=== PATIENT | male | born 1950 | race Caucasian/White ===

== ENCOUNTER 2018-03-02 14:40 | Emergency (ER) | payer MEDICARE ==
[2018-03-02 14:54] VITALS: TEMP 98.6
[2018-03-02] MEDS ORDERED: SODIUM CHLORIDE 0.9% 1,000 ML IV STA (15:17)
--- NOTE | 2018-03-02 15:20 | ED ---
Dizziness HPI - General Chief Complaint: Dizziness Stated Complaint: Hematuria Time Seen by Provider: 03/02/18 15:02 Source: patient, RN notes reviewed, old records reviewed Mode of arrival: ambulatory Limitations: no limitations - History of Present Illness Initial Comments: This patient's a 67-year-old male with chief complaint of dizziness, and hematuria for the past week. Patient reports that approximately one week ago he had a right ureteral stent placed by Dr. Vernon in [facility]. Patient has had persistent hematuria since that time. He they report that he has diminished up in the past few days. Patient reports that he has no significant back or abdominal pain. He was also concerned due to increased belching. He was started on omeprazole daily for the increased belching by his primary care physician. Patient states that he had an episode near syncope yesterday. He denies any headache, chest pain or shortness of breath. He reports that he's had no bloody stools. - Related Data Home Medications Medication Instructions Recorded Confirmed Aspirin EC [Ecotrin Low Dose] 81 mg PO HS 03/02/18 03/02/18 Losartan Potassium [Cozaar] 100 mg PO HS 03/02/18 03/02/18 Meloxicam 15 mg PO HS 03/02/18 03/02/18 Omeprazole 40 mg PO BID 03/02/18 03/02/18 Tamsulosin [Flomax] 0.4 mg PO HS 03/02/18 03/02/18 amLODIPine [Norvasc] 5 mg PO HS 03/02/18 03/02/18 Previous Rx's Medication Instructions Recorded Meclizine [Antivert] 12.5 mg PO Q6H #12 tablet 03/02/18 Allergies Allergy/AdvReac Type Severity Reaction Status Date / Time No Known Allergies Allergy Verified 03/02/18 15:24 Review of Systems ROS Statement: Those systems with pertinent positive or pertinent negative responses have been documented in the HPI. ROS Other: All systems not noted in ROS Statement are negative. Past Medical History Past Medical History: GERD/Reflux, Hypertension Additional Past Medical History / Comment(s): kidney stones History of Any Multi-Drug Resistant Organisms: None Reported Past Surgical History: Orthopedic Surgery, Tonsillectomy Additional Past Surgical History / Comment(s): kidney stent, kidney stone removal, rt hip replac Past Psychological History: No Psychological Hx Reported Smoking Status: Never smoker Past Alcohol Use History: Occasional Past Drug Use History: None Reported General Exam - General Exam Comments Initial Comments: This is a well-appearing alert and oriented 67-year-old male. No significant distress. Limitations: no limitations General appearance: alert, in no apparent distress Head exam: Present: atraumatic, normocephalic, normal inspection Eye exam: Present: normal appearance, PERRL, EOMI. Absent: scleral icterus, conjunctival injection, periorbital swelling ENT exam: Present: normal exam, mucous membranes moist Neck exam: Present: normal inspection. Absent: tenderness, meningismus, lymphadenopathy Respiratory exam: Present: normal lung sounds bilaterally. Absent: respiratory distress, wheezes, rales, rhonchi, stridor Cardiovascular Exam: Present: regular rate, normal rhythm, normal heart sounds. Absent: systolic murmur, diastolic murmur, rubs, gallop, clicks GI/Abdominal exam: Present: soft, tenderness (Minimal right CVA tenderness.), normal bowel sounds. Absent: distended, guarding, rebound, rigid Extremities exam: Present: normal inspection, full ROM, normal capillary refill. Absent: tenderness, pedal edema, joint swelling, calf tenderness Back exam: Present: normal inspection Neurological exam: Present: alert Course Vital Signs 03/02/18 03/02/18 03/02/18 14:50 15:54 17:00 Temperature 98.6 F Pulse Rate 95 85 77 Respiratory 18 20 18 Rate Blood Pressure 115/70 128/83 117/70 O2 Sat by Pulse 98 97 98 Oximetry 03/02/18 18:05 Temperature 98.6 F Pulse Rate 73 Respiratory 18 Rate Blood Pressure 128/65 O2 Sat by Pulse 98 Oximetry Medical Decision Making - Medical Decision Making This patient's a 67-year-old male with chief complaint of dizziness, and hematuria for the past week. Patient reports that approximately one week ago he had a right ureteral stent placed by Dr. Vernon in [facility].Patient given IV fluids, labs obtained. UA shows hematuria, as to be expected after ureteral stent plaement. Culture obtained. He recently completed his antibiotics post procedure. PAtient EKG was normal, Normal CXR. No neurological deficits. PAtietn reports he felt well after fluids. His main concern is loss of blood through his urine. HGB is table, Kidney function is preserved, as well as normal WBC. Patient informed of all results. At this time discussed close follow up with PCP, and will DC with meclizine. Discussed return parameters. - Lab Data Result diagrams: 03/02/18 16:00 03/02/18 16:00 Lab Results 03/02/18 03/02/18 03/02/18 Range/Units 16:00 16:00 16:00 WBC 6.8 (3.8-10.6) k/uL RBC 5.44 (4.30-5.90) m/uL Hgb 16.1 (13.0-17.5) gm/dL Hct 46.6 (39.0-53.0) % MCV 85.6 (80.0-100.0) fL MCH 29.6 (25.0-35.0) pg MCHC 34.5 (31.0-37.0) g/dL RDW 12.8 (11.5-15.5) % Plt Count 129 L (150-450) k/uL Neutrophils % 71 % Lymphocytes % 18 % Monocytes % 8 % Eosinophils % 1 % Basophils % 0 % Neutrophils # 4.8 (1.3-7.7) k/uL Lymphocytes # 1.2 (1.0-4.8) k/uL Monocytes # 0.5 (0-1.0) k/uL Eosinophils # 0.1 (0-0.7) k/uL Basophils # 0.0 (0-0.2) k/uL PT 10.6 (9.0-12.0) sec INR 1.1 (<1.2) Sodium 140 (137-145) mmol/L Potassium 4.0 (3.5-5.1) mmol/L Chloride 106 (98-107) mmol/L Carbon Dioxide 25 (22-30) mmol/L Anion Gap 9 mmol/L BUN 17 (9-20) mg/dL Creatinine 0.89 (0.66-1.25) mg/dL Est GFR (CKD-EPI)AfAm >90 (>60 ml/min/1.73 sqM) Est GFR (CKD-EPI)NonAf 89 (>60 ml/min/1.73 sqM) Glucose 94 (74-99) mg/dL Calcium 9.4 (8.4-10.2) mg/dL Total Bilirubin 0.9 (0.2-1.3) mg/dL AST 21 (17-59) U/L ALT 34 (21-72) U/L Alkaline Phosphatase 65 (38-126) U/L Troponin I (0.000-0.034) ng/mL Total Protein 6.5 (6.3-8.2) g/dL Albumin 4.3 (3.5-5.0) g/dL Urine Color Urine Appearance (Clear) Urine pH (5.0-8.0) Ur Specific Bryan (1.001-1.035) Urine Protein (Negative) Urine Glucose (UA) (Negative) Urine Ketones (Negative) Urine Blood (Negative) Urine Nitrite (Negative) Urine Bilirubin (Negative) Urine Urobilinogen (<2.0) mg/dL Ur Leukocyte Esterase (Negative) Urine RBC (0-5) /hpf Urine WBC (0-5) /hpf Urine Bacteria (None) /hpf Hyaline Casts (0-2) /lpf Urine Mucus (None) /hpf 03/02/18 03/02/18 Range/Units 16:00 16:55 WBC (3.8-10.6) k/uL RBC (4.30-5.90) m/uL Hgb (13.0-17.5) gm/dL Hct (39.0-53.0) % MCV (80.0-100.0) fL MCH (25.0-35.0) pg MCHC (31.0-37.0) g/dL RDW (11.5-15.5) % Plt Count (150-450) k/uL Neutrophils % % Lymphocytes % % Monocytes % % Eosinophils % % Basophils % % Neutrophils # (1.3-7.7) k/uL Lymphocytes # (1.0-4.8) k/uL Monocytes # (0-1.0) k/uL Eosinophils # (0-0.7) k/uL Basophils # (0-0.2) k/uL PT (9.0-12.0) sec INR (<1.2) Sodium (137-145) mmol/L Potassium (3.5-5.1) mmol/L Chloride (98-107) mmol/L Carbon Dioxide (22-30) mmol/L Anion Gap mmol/L BUN (9-20) mg/dL Creatinine (0.66-1.25) mg/dL Est GFR (CKD-EPI)AfAm (>60 ml/min/1.73 sqM) Est GFR (CKD-EPI)NonAf (>60 ml/min/1.73 sqM) Glucose (74-99) mg/dL Calcium (8.4-10.2) mg/dL Total Bilirubin (0.2-1.3) mg/dL AST (17-59) U/L ALT (21-72) U/L Alkaline Phosphatase (38-126) U/L Troponin I <0.012 (0.000-0.034) ng/mL Total Protein (6.3-8.2) g/dL Albumin (3.5-5.0) g/dL Urine Color Yellow Urine Appearance Clear (Clear) Urine pH 6.0 (5.0-8.0) Ur Specific Bryan 1.012 (1.001-1.035) Urine Protein 1+ H (Negative) Urine Glucose (UA) Negative (Negative) Urine Ketones 1+ H (Negative) Urine Blood Large H (Negative) Urine Nitrite Negative (Negative) Urine Bilirubin Negative (Negative) Urine Urobilinogen <2.0 (<2.0) mg/dL Ur Leukocyte Esterase Moderate H (Negative) Urine RBC >182 H (0-5) /hpf Urine WBC 16 H (0-5) /hpf Urine Bacteria Rare H (None) /hpf Hyaline Casts 2 (0-2) /lpf Urine Mucus Occasional H (None) /hpf 03/02/18 16:04 EKG performed at 1548 shows normal sinus rhythm left axis deviation. Pulmonary disease pattern. Abnormal EKG noted. Ventricular rate 94 bpm. Was 168 ms. QRS ration 82. QT QTc is 372/465 ms. - Radiology Data Radiology results: report reviewed Nonacute abdomen noted. Chest x-rays negative for any acute cardiac coronary disease. Disposition Clinical Impression: Dizziness, Hematuria Disposition: HOME SELF-CARE Condition: Good Instructions: Dizziness (ED) Additional Instructions: Patient has a follow-up within the next 1-2 days with primary care physician. Continue to keep your appointment with urology. Return to the emergency department if any alarming signs or symptoms occur. Prescriptions: Meclizine [Antivert] 12.5 mg PO Q6H #12 tablet Is patient prescribed a controlled substance at d/c from ED?: No Referrals: Doreen Quevedo DO [Primary Care Provider] - 1-2 days Time of Disposition: 17:50
[2018-03-02] MEDS ORDERED: SODIUM CHLORIDE 0.9% 1,000 ML IV SCH (15:30)
[2018-03-02 16:16] LABS: INR 1.1 (<1.2); Prothrombin Time 10.6 sec (9.0-12.0)
[2018-03-02 16:19] LABS: ALT 34 U/L (21-72); AST 21 U/L (17-59); Albumin 4.3 g/dL (3.5-5.0); Alkaline Phosphatase 65 U/L (38-126); Anion Gap 9 mmol/L; Blood Urea Nitrogen 17 mg/dL (9-20); Calcium 9.4 mg/dL (8.4-10.2); Carbon Dioxide 25 mmol/L (22-30); Chloride 106 mmol/L (98-107); Glucose 94 mg/dL (74-99); Sodium 140 mmol/L (137-145); Total Bilirubin 0.9 mg/dL (0.2-1.3); Total Protein 6.5 g/dL (6.3-8.2)
[2018-03-02 16:26] LABS: Basophils % (A) 0 %; Eosinophils # (A) 0.1 k/uL (0-0.7); Eosinophils % (A) 1 %; HCT 46.6 % (39.0-53.0); HGB 16.1 gm/dL (13.0-17.5); Lymphocytes # (A) 1.2 k/uL (1.0-4.8); Lymphocytes % (A) 18 %; MCH 29.6 pg (25.0-35.0); MCHC 34.5 g/dL (31.0-37.0); MCV 85.6 fL (80.0-100.0); Mean Platelet Volume 7.4; Monocytes # (A) 0.5 k/uL (0-1.0); Monocytes % (A) 8 %; Neutrophils # (A) 4.8 k/uL (1.3-7.7); Neutrophils % (A) 71 %; Platelet Count 129 k/uL (150-450); RBC 5.44 m/uL (4.30-5.90); RDW 12.8 % (11.5-15.5); WBC 6.8 k/uL (3.8-10.6)
--- NOTE | 2018-03-02 16:43 | XR ---
EXAMINATION TYPE: XR chest 2V DATE OF EXAM: 03/02/2018 COMPARISON: NONE HISTORY: Dizziness TECHNIQUE: Frontal and lateral views of the chest are obtained. FINDINGS: Heart and mediastinum are normal. Lungs are clear. Diaphragm is normal. There are chest le ads. Bony thorax is intact. IMPRESSION: No active cardiopulmonary disease.
--- NOTE | 2018-03-02 16:45 | XR ---
EXAMINATION TYPE: XR KUB DATE OF EXAM: 03/02/2018 COMPARISON: NONE HISTORY: Abdominal pain TECHNIQUE: 2 views FINDINGS: 2 upright views show no sign of intestinal obstruction or pneumoperitoneum. Fecal pattern i s normal. There is right hip prosthesis. Lung bases are clear. There are no pathologic calcifications over the kidneys. There is left-sided double-J ureteral stent. IMPRESSION: Nonacute abdomen.
[2018-03-02 17:11] LABS: Appearance,Urine Clear (Clear); Bacteria,Urine Rare /hpf; Bilirubin,Urine Negative (Negative); Blood,Urine Large (Negative); Color,Urine Yellow; Glucose,Urine (UA) Negative (Negative); Hyaline Casts,Urine 2 /lpf (0-2); Ketones,Urine 1+ (Negative); Leukocyte Esterase,Urine Moderate (Negative); Mucus,Urine Occasional /hpf; Nitrite,Urine Negative (Negative); Protein,Urine 1+ (Negative); RBC,Urine >182 /hpf (0-5); Specific Gravity,Urine 1.012 (1.001-1.035); Urobilinogen,Urine <2.0 mg/dL (<2.0); WBC,Urine 16 /hpf (0-5)
[2018-03-02 17:28] VITALS: RESP 18
[2018-03-02 18:06] VITALS: BP 128/65; PULSE 73
== END 2018-03-02 18:06 | disposition home or self-care (01) ==
LOC: EC 14:40
DX: R42 Dizziness and giddiness (principal); R31.9 Hematuria, unspecified; I10 Essential (primary) hypertension; K21.9 Gastro-esophageal reflux disease without esophagitis; Z96.0 Presence of urogenital implants; Z87.442 Personal history of urinary calculi; Z79.1 Long term (current) use of non-steroidal anti-inflammatories (NSAID); Z79.82 Long term (current) use of aspirin; Z79.899 Other long term (current) drug therapy
CPT/HCPCS: 36415; 71046; 74018; 80053; 81001; 84484; 85025; 85610; 87077; 87086; 87186; 93005; 96360; 96361; 99284

== ENCOUNTER 2021-01-03 16:22 | Observation (INO) | payer MEDICARE ==
--- NOTE | 2021-01-03 16:34 | ED ---
Chest Pain HPI - General Chief Complaint: Chest Pain Stated Complaint: chest pain Time Seen by Provider: 01/03/21 16:33 Source: patient Mode of arrival: wheelchair Limitations: no limitations - History of Present Illness Initial Comments: Lee is a 70-year-old man who presents the ER today for evaluation of chest pain. Patient reports he's been having intermittent chest pain for the past week, he thought it was related to his acid reflux he's been taking extra [id number] medications including Tums and Maalox with no improvement. Patient reports that today he got the chest pain while gardening, he states that he was able to do only of very little bit of work before becoming very short of breath and having chest pain. His noted that he looked diaphoretic and uncomfortable. They decided that time that he should rest. Despite resting and persistent pain he decided to come to the ER for evaluation. Patient has no significant cardiac history does not follow with cardiology. - Related Data Home Medications Medication Instructions Recorded Confirmed Aspirin EC [Ecotrin Low Dose] 81 mg PO HS 03/02/18 03/02/18 Losartan Potassium [Cozaar] 100 mg PO HS 03/02/18 03/02/18 Meloxicam 15 mg PO HS 03/02/18 03/02/18 Omeprazole 40 mg PO BID 03/02/18 03/02/18 Tamsulosin [Flomax] 0.4 mg PO HS 03/02/18 03/02/18 amLODIPine [Norvasc] 5 mg PO HS 03/02/18 03/02/18 Previous Rx's Medication Instructions Recorded Meclizine [Antivert] 12.5 mg PO Q6H #12 tablet 03/02/18 Allergies Allergy/AdvReac Type Severity Reaction Status Date / Time No Known Allergies Allergy Verified 01/03/21 16:29 Review of Systems ROS Statement: Those systems with pertinent positive or pertinent negative responses have been documented in the HPI. ROS Other: All systems not noted in ROS Statement are negative. EKG Findings - EKG Comments: EKG Findings:: EKG was obtained due to complaint of chest pain, EKG was 1724, rate is 82 rhythm is sinus normal intervals, NV 150, QRS 80, QTC 455 there are no acute ST elevations or depressions no evidence of ischemia infarction or arrhythmia. Past Medical History Past Medical History: GERD/Reflux, Hypertension Additional Past Medical History / Comment(s): kidney stones History of Any Multi-Drug Resistant Organisms: None Reported Date of last positivie culture/infection: 03/02/18 MDRO Source:: ESBL URINE Past Surgical History: Orthopedic Surgery, Tonsillectomy Additional Past Surgical History / Comment(s): kidney stent, kidney stone removal, rt hip replac Past Psychological History: No Psychological Hx Reported Smoking Status: Never smoker Past Alcohol Use History: Occasional Past Drug Use History: None Reported General Exam - General Exam Comments Initial Comments: Physical Exam GENERAL: Patient is well-developed and well-nourished. Patient is nontoxic and well- hydrated and is in no distress. HENT: Normocephalic, Atraumatic. EYES: PERRL, EOMI PULMONARY: Unlabored respirations. No audible rales rhonchi or wheezing was noted. CARDIOVASCULAR: There is a regular rate and rhythm without any murmurs gallops or rubs. ABDOMEN: Soft and nontender with normal bowel sounds. SKIN: Skin is clear with no lesions or rashes and otherwise unremarkable. : Deferred NEUROLOGIC: Patient is alert and oriented x3. Moving all extremities spontaneously MUSCULOSKELETAL: Normal extremities with adequate strength and full range of motion. No lower extremity swelling or edema. No calf tenderness. PSYCHIATRIC: Normal psychiatric evaluation. Limitations: no limitations Course Vital Signs 01/03/21 01/03/21 16:25 18:43 Temperature 98.1 F Pulse Rate 88 82 Respiratory 20 18 Rate Blood Pressure 127/80 100/72 O2 Sat by Pulse 97 97 Oximetry Chest Pain MDM - MDM The patient was seen and evaluated history is obtained from the patient History and physical exam are concerning for chest pain that is ischemic in nature EKG is nonischemic in appearance I think chest x-ray was unremarkable Labs were within normal limits however considering the patient's age and risk factors I do feel he warrants admission to the hospital for evaluation by cardiology patient and are agreeable with this Patient care was discussed with Sridevi nurse practitioner for the [facility] hospitalist group who accepts the admission Disposition Clinical Impression: Chest pain Disposition: ADMITTED IP TO THIS HOSP Condition: Stable Is patient prescribed a controlled substance at d/c from ED?: No Referrals: Mana Cervantes DO [Primary Care Provider] - 1-2 days
[2021-01-03 17:46] LABS: Basophils % (A) 1 %; Eosinophils # (A) 0.1 k/uL (0-0.7); Eosinophils % (A) 2 %; HCT 45.8 % (39.0-53.0); HGB 16.1 gm/dL (13.0-17.5); Lymphocytes % (A) 19 %; MCH 30.5 pg (25.0-35.0); MCHC 35.2 g/dL (31.0-37.0); MCV 86.8 fL (80.0-100.0); Mean Platelet Volume 7.9; Monocytes # (A) 0.5 k/uL (0-1.0); Monocytes % (A) 10 %; Neutrophils # (A) 3.6 k/uL (1.3-7.7); Neutrophils % (A) 67 %; Platelet Count 113 k/uL (150-450); RBC 5.28 m/uL (4.30-5.90); RDW 12.8 % (11.5-15.5); WBC 5.4 k/uL (3.8-10.6)
[2021-01-03 17:59] LABS: ALT 21 U/L (4-49); AST 26 U/L (17-59); African American GFR (CKD) >90 (>60 ml/min/1.73 sqM); Albumin 4.2 g/dL (3.5-5.0); Alkaline Phosphatase 84 U/L (38-126); Anion Gap 8 mmol/L; Blood Urea Nitrogen 23 mg/dL (9-20); Calcium 9.2 mg/dL (8.4-10.2); Carbon Dioxide 25 mmol/L (22-30); Chloride 107 mmol/L (98-107); Glucose 102 mg/dL (74-99); Non-African American GFR(CKD) 87 (>60 ml/min/1.73 sqM); Sodium 140 mmol/L (137-145); Total Bilirubin 0.9 mg/dL (0.2-1.3); Total Protein 6.6 g/dL (6.3-8.2)
--- NOTE | 2021-01-03 18:04 | XR ---
EXAMINATION TYPE: XR chest 2V DATE OF EXAM: 01/03/2021 COMPARISON: March 02, 2018 HISTORY: Dizziness TECHNIQUE: 2 views FINDINGS: Heart and mediastinum are normal. Lungs are clear. Diaphragm is normal. Bony thorax is inta ct. There are chest leads. IMPRESSION: Normal chest. No change.
[2021-01-03 18:08] LABS: INR 1.1 (<1.2); Partial Thromboplastin Time 25.5 sec (22.0-30.0); Prothrombin Time 11.2 sec (9.0-12.0)
[2021-01-03] MEDS ORDERED: MAG HYDROX/AL HYDROX/SIMETH 30 ML, HYOSCYAMINE ELIXIR 10 ML, LIDOCAINE VISCOUS 2% 10 ML PO STA ×3 (19:19)
[2021-01-03] MEDS ORDERED: NITROGLYCERIN SL TABS 0.4 MG TAB SUBLINGUAL PRN (20:21)
[2021-01-03] MEDS: amLODIPine 5 MG TAB PO SCH (20:57)
[2021-01-03] MEDS: LOSARTAN 50 MG TAB PO SCH (20:58)
[2021-01-03] MEDS ORDERED: MELOXICAM 7.5 MG TAB PO SCH (21:00)
[2021-01-03] MEDS: TAMSULOSIN 0.4 MG CAP.ER.24H PO SCH (21:04)
[2021-01-03] MEDS: PANTOPRAZOLE 40 MG TABLET PO SCH (21:05)
[2021-01-03] MEDS: ASPIRIN 81 MG PO SCH (21:05)
[2021-01-04] MEDS: DOCUSATE 100 MG CAP PO SCH (08:24)
[2021-01-04] MEDS: polyethylene glycoL 3350 17 GM POWD.PACK PO SCH (08:24)
[2021-01-04] MEDS: PANTOPRAZOLE 40 MG TABLET PO SCH ×2 (08:25→20:53)
[2021-01-04] MEDS ORDERED: ASPIRIN 325 MG TAB PO SCH (09:00)
[2021-01-04 10:14] LABS: Chol/HDL Ratio 3.15; LDL Cholesterol,Calculated 96.8 mg/dL (0.0-131.0); VLDL Calculation 15.2 mg/dL (5.00-40.00)
[2021-01-04] MEDS: SODIUM CHLORIDE 0.9% 1,000 ML IV SCH (11:19)
--- NOTE | 2021-01-04 11:37 | P.HPIM ---
History of Present Illness This is a pleasant 70 years old male with past medical history of prostate cancer as well as with oncologist at [place], currently is only doing checkup and no active treatment as he states. Other chronic medical illnesses including GERD for many years for which he is on PPI and hypertension. He was in [place] in October and started having upper chest pain and he thought its acid reflux but it was not going away however he treated with his antiacid medication and then subsided. This chest pain persists when he came home, it c omes and goes. Last week he noticed that the pain is going more severe starting on Tuesday although it's subsided a little bit however he got concerned and he decided to come to emergency room. Review of Systems CONSTITUTIONAL: No fever, no malaise, no fatigue. HEENT: No recent visual problems or hearing problems. Denied any sore throat. CARDIOVASCULAR: No orthopnea, PND, no palpitations, no syncope. PULMONARY: No shortness of breath, no cough, no hemoptysis. GASTROINTESTINAL: No diarrhea, no nausea, no vomiting, no abdominal pain. Normoactive bowel sounds. NEUROLOGICAL: No headaches, no weakness, no numbness. HEMATOLOGICAL: Denies any bleeding or petechiae. GENITOURINARY: Denies any burning micturition, frequency, or urgency. MUSCULOSKELETAL/RHEUMATOLOGICAL: Denies any joint pain, swelling, or any muscle pain. ENDOCRINE: Denies any polyuria or polydipsia. Past Medical History Past Medical History: GERD/Reflux, Hypertension, Prostate Disorder Additional Past Medical History / Comment(s): kidney stones, prostate ca with radiation History of Any Multi-Drug Resistant Organisms: None Reported Date of last positivie culture/infection: 03/02/18 MDRO Source:: ESBL URINE Past Surgical History: Orthopedic Surgery, Tonsillectomy Additional Past Surgical History / Comment(s): kidney stent, kidney stone removal, rt hip replac, Past Anesthesia/Blood Transfusion Reactions: No Reported Reaction Past Psychological History: No Psychological Hx Reported Smoking Status: Never smoker Past Alcohol Use History: Occasional Past Drug Use History: None Reported Medications and Allergies Home Medications Medication Instructions Recorded Confirmed Type Losartan Potassium [Cozaar] 100 mg PO HS 03/02/18 01/03/21 History Omeprazole 40 mg PO BID 03/02/18 01/03/21 History Tamsulosin [Flomax] 0.4 mg PO W/SUPPER 03/02/18 01/03/21 History amLODIPine [Norvasc] 5 mg PO HS 03/02/18 01/03/21 History Docusate [Colace] 100 mg PO BID 01/03/21 01/03/21 History polyethylene glycoL 3350 [Miralax] 17 gm PO DAILY 01/03/21 01/03/21 History Allergies Allergy/AdvReac Type Severity Reaction Status Date / Time No Known Allergies Allergy Verified 01/03/21 20:39 Physical Exam Vitals: Vital Signs Temp Pulse Pulse Resp BP BP Pulse Ox 01/04/21 08:00 67 18 01/04/21 06:58 97.7 F 67 18 110/69 98 01/04/21 06:00 98.3 F 76 16 128/78 98 01/04/21 03:45 65 20 121/77 99 01/03/21 23:01 65 18 116/76 98 01/03/21 18:43 82 18 100/72 97 01/03/21 16:25 98.1 F 88 20 127/80 97 Intake and Output 01/03/21 01/04/21 01/04/21 22:59 06:59 14:59 Intake Total 200 Balance 200 Intake: Oral 200 Other: Voiding Method Toilet Weight 122.47 kg 122.47 kg GENERAL: The patient is alert and oriented x3, not in any acute distress. Well developed, well nourished. HEENT: Pupils are round and equally reacting to light. EOMI. No scleral icterus. No conjunctival pallor. Normocephalic, atraumatic. No pharyngeal erythema. No thyromegaly. CARDIOVASCULAR: S1 and S2 present. No murmurs, rubs, or gallops. PULMONARY: Chest is clear to auscultation, no wheezing or crackles. ABDOMEN: Soft, nontender, nondistended, normoactive bowel sounds. No palpable organomegaly. MUSCULOSKELETAL: No joint swelling or deformity. EXTREMITIES: No cyanosis, clubbing, or pedal edema. NEUROLOGICAL: Gross neurological examination did not reveal any focal deficits. SKIN: No rashes. No petechiae Results CBC & Chem 7: 01/03/21 17:36 01/03/21 17:36 Labs: Abnormal Lab Results - Last 24 Hours (Table) 01/03/21 01/03/21 Range/Units 17:36 17:36 Plt Count 113 L (150-450) k/uL BUN 23 H (9-20) mg/dL Glucose 102 H (74-99) mg/dL Thrombosis Risk Factor Assmnt - Choose All That Apply Any of the Below Risk Factors Present?: Yes Each Factor Represents 1 point: Obesity (BMI >25) Other Risk Factors: Yes Each Risk Factor Represents 2 Points: Age 61-74 years Thrombosis Risk Factor Assessment Total Risk Factor Score: 3 Thrombosis Risk Factor Assessment Level: Moderate Risk Assessment and Plan Assessment: His pain is in the upper chest goes across the chest and both shoulders. Redig like pressure and bulging. Rated as 5-60/10, associated with little cough and little dyspnea. Patient states may breathing is not normal. He denies smoking however he drinks about 3 beers and liquor, 2 drinks every day. No illicit drugs Vitals are stable. No episodes of hypertension. Labs are unremarkable including CBC, INR, basic metabolic panel, liver enzymes. Troponin are negative 3 with less than 0.012. Lipid panel is acceptable. Carona virus not detected. Chest x-ray: No acute process EKG showing normal sinus rhythm at [address]-T changes and QTC is 455. In the emergency room patient was started on baby aspirin and admitted with cardiology consult Patient denies using of Motrin or other NSAIDs Plan: This is a pleasant 70 years old male who presents with chest pain. We'll do serial troponin, echocardiogram, cardiology consult. Continue with aspirin. Also we will check d-dimer given his symptoms associated with dyspnea and getting worse to rule out PE. If d-dimer elevated going to do CTA of the chest, risks of are explained to the patient including but not limited to risk of ALLERGIC reaction but patient states that he has taken the test before. Other risks including nephrotoxicity which explained to the patient in details, he agrees to do the test if it's indicated by the medical team. Labs and medication were reviewed.. Continue same treatment. Continue with symptomatic treatment. Resume home medication. Monitor lytes and vitals. DVT and GI prophylaxis. Further recommendations depends on the clinical course of the patient DVT prophylaxis: Subcutaneous heparin GI Prophylaxis: Ppi Prognosis is guarded
--- NOTE | 2021-01-04 13:31 | CT ---
EXAMINATION TYPE: CT chest angio for PE DATE OF EXAM: 01/04/2021 COMPARISON: HISTORY: Chest pains, short of breath with mask CT DLP: 638.5 mGycm Automated exposure control for dose reduction was used. CONTRAST: CT Chest for pulmonary embolism performed with with IV Contrast, patient injected with 87 mL of Isovu e 370. FINDINGS: LUNGS: The lungs are grossly clear, there is no concerning parenchymal mass or nodule identified. T here is no pleural effusion or pneumothorax seen. The tracheobronchial tree is patent. Hyperinflatio n suggests COPD and there is subsegmental consolidation at both lung bases most typical of atelectasi s. 3 mm left upper lobe pulmonary nodule too small to characterize. MEDIASTINUM: There is satisfactory enhancement of the pulmonary artery and its branches, there is no CT evidence for pulmonary embolism. There are no greater than 1 cm hilar or mediastinal lymph nodes. Aorta of normal caliber with atherosclerotic changes. There is a trace pericardial fluid. OTHER: Hypertrophic and degenerative changes spine. Nonobstructing left renal calculus measuring 4 m m. IMPRESSION: 1. COPD with no diagnostic evidence of pulmonary edema. 2. Nonobstructing left renal calculus. 3. Cardiomegaly with trace amount of pericardial fluid 4. 3 mm left upper lobe pulmonary nodule too small to characterize recommend 12 month follow-up.
--- NOTE | 2021-01-04 14:41 | P.CRDCN ---
History of Present Illness Consult date: 01/04/21 Requesting physician: Dakota Lombardi Reason for Consult (text): chest pain Chief complaint: chest pressure, shortness of breath History of present illness: The pleasant 70-year-old gentleman with a history of hypertension and GERD he is an ex-smoker who quit smoking about 30 years ago and he drinks about 2 drinks [place] beer or mixed drinks daily. He does not follow with a copywriting intern. He presented to the emergency department with complaints of recurrent chest pressure. It's been occurring over the last several months. He has been treating it with his omeprazole and troponins at home thinking it is GERD. It seems to have become more frequent recently. It is not necessarily occurring with activity. He occasionally gets some radiation of the chest pressure to his shoulders bilaterally. The chest pressure is across his upper chest and at times occurs with belching. She's also been complaining of some shortness of breath recently. EKG on admission shows sinus rhythm with no evidence of acute ischemia. Chest x-ray showed normal chest and no change. Laboratory values sh owed a normal white blood cell count, hemoglobin 16.1, platelet count of 113, sodium 140, potassium 4.0, BUN 23 and creatinine 0.88. Magnesium is normal at 2.0. Troponins have been negative 3. Lipids show normal triglyceride level, total cholesterol, HDL 52 and LDL of 96.8. Vital signs and stable. Home medications include Flomax 0.4 mg by mouth daily, omeprazole 40 mg, Colace 100 mg by mouth twice a day, MiraLAX, amlodipine 5 mg by mouth daily at bedtime and losartan 100 mg by mouth daily at bedtime. Upon examination the patient is resting comfortably in bed. He has no current complaints. He has been chest pain-free. He's had no palpitations, orthopnea or PND. He has been getting some dizziness after bending over upon standing. No syncope or near syncope. He's had no edema. Past Medical History Past Medical History: GERD/Reflux, Hypertension, Prostate Disorder Additional Past Medical History / Comment(s): kidney stones, prostate ca with radiation History of Any Multi-Drug Resistant Organisms: None Reported Date of last positivie culture/infection: 03/02/18 MDRO Source:: ESBL URINE Past Surgical History: Orthopedic Surgery, Tonsillectomy Additional Past Surgical History / Comment(s): kidney stent, kidney stone removal, rt hip replac, Past Anesthesia/Blood Transfusion Reactions: No Reported Reaction Past Psychological History: No Psychological Hx Reported Smoking Status: Never smoker Past Alcohol Use History: Occasional Past Drug Use History: None Reported Medications and Allergies Home Medications Medication Instructions Recorded Confirmed Type Losartan Potassium [Cozaar] 100 mg PO HS 03/02/18 01/03/21 History Omeprazole 40 mg PO BID 03/02/18 01/03/21 History Tamsulosin [Flomax] 0.4 mg PO W/SUPPER 03/02/18 01/03/21 History amLODIPine [Norvasc] 5 mg PO HS 03/02/18 01/03/21 History Docusate [Colace] 100 mg PO BID 01/03/21 01/03/21 History polyethylene glycoL 3350 [Miralax] 17 gm PO DAILY 01/03/21 01/03/21 History Allergies Allergy/AdvReac Type Severity Reaction Status Date / Time No Known Allergies Allergy Verified 01/03/21 20:39 Physical Exam Vitals: Vital Signs Temp Pulse Pulse Resp BP BP Pulse Ox 01/04/21 08:00 67 18 01/04/21 06:58 97.7 F 67 18 110/69 98 01/04/21 06:00 98.3 F 76 16 128/78 98 01/04/21 03:45 65 20 121/77 99 01/03/21 23:01 65 18 116/76 98 01/03/21 18:43 82 18 100/72 97 01/03/21 16:25 98.1 F 88 20 127/80 97 Intake and Output 01/03/21 01/04/21 01/04/21 22:59 06:59 14:59 Intake Total 200 Balance 200 Intake: Oral 200 Other: Voiding Method Toilet Weight 122.47 kg 122.47 kg PHYSICAL EXAMINATION: This is a 70-year-old male in no apparent distress at the time of my examination. VITAL SIGNS: Blood pressure 110/69, heart rate 67, respirations 18, temp 97.7F. Patient is 98 % on room air. HEENT: Head is atraumatic, normocephalic. Pupils are equal, round. Sclerae anicteric. Conjunctivae are clear. Mucous membranes of the mouth are moist. Neck is supple. There is no elevated jugular venous pressure. No carotid bruit is heard. CHEST EXAMINATION: Clear to auscultation bilaterally. No wheezes rales or rhonchi. Respirations even and nonlabored. HEART EXAMINATION: Heart regular, positive S1 and S2. No S3. No S4. No click s, rubs or murmurs. ABDOMEN: Soft, obese, nontender. Bowel sounds are heard. No organomegaly noted. EXTREMITIES: 2+ peripheral pulses with no evidence of peripheral edema and no calf tenderness noted. NEUROLOGIC EXAMINATION: Patient is awake, alert and oriented x3. Results 01/03/21 17:36 01/03/21 17:36 Cardiac Enzymes 01/03/21 01/03/21 01/03/21 Range/Units 17:36 17:36 21:15 AST 26 (17-59) U/L Troponin I <0.012 <0.012 (0.000-0.034) ng/mL 01/04/21 Range/Units 00:21 AST (17-59) U/L Troponin I <0.012 (0.000-0.034) ng/mL Coagulation 01/03/21 Range/Units 17:36 PT 11.2 (9.0-12.0) sec APTT 25.5 (22.0-30.0) sec Lipids 01/03/21 Range/Units 17:36 Triglycerides 76.0 (0.0-149.0) mg/dL Cholesterol 164 (0-200) mg/dL HDL Cholesterol 52.0 (40.0-60.0) mg/dL Cholesterol/HDL Ratio 3.15 CBC 01/03/21 Range/Units 17:36 WBC 5.4 (3.8-10.6) k/uL RBC 5.28 (4.30-5.90) m/uL Hgb 16.1 (13.0-17.5) gm/dL Hct 45.8 (39.0-53.0) % Plt Count 113 L (150-450) k/uL Comprehensive Metabolic Panel 01/03/21 Range/Units 17:36 Sodium 140 (137-145) mmol/L Potassium 4.0 (3.5-5.1) mmol/L Chloride 107 (98-107) mmol/L Carbon Dioxide 25 (22-30) mmol/L BUN 23 H (9-20) mg/dL Creatinine 0.88 (0.66-1.25) mg/dL Glucose 102 H (74-99) mg/dL Calcium 9.2 (8.4-10.2) mg/dL AST 26 (17-59) U/L ALT 21 (4-49) U/L Alkaline Phosphatase 84 (38-126) U/L Total Protein 6.6 (6.3-8.2) g/dL Albumin 4.2 (3.5-5.0) g/dL Current Medications Generic Name Dose Route Start Last Admin Trade Name Freq PRN Reason Stop Dose Admin Amlodipine Besylate 5 mg 01/03/21 21:00 01/03/21 20:57 Amlodipine 5 Mg Tab PO Not Given HS KEYA Aspirin 81 mg 01/03/21 21:00 01/03/21 21:05 Aspirin 81 Mg PO 81 mg HS KEYA Administration Docusate Sodium 100 mg 01/04/21 09:00 01/04/21 08:24 Docusate 100 Mg Cap PO 100 mg DAILY KEYA Administration Losartan Potassium 100 mg 01/03/21 21:00 01/03/21 20:58 Losartan 50 Mg Tab PO Not Given HS KEYA Meloxicam 15 mg 01/03/21 21:00 01/03/21 21:05 Meloxicam 7.5 Mg Tab PO Not Given HS KEYA Nitroglycerin 0.4 mg 01/03/21 20:21 Nitroglycerin Sl Tabs 0.4 Mg Tab SUBLINGUAL Q5M PRN Chest Pain Pantoprazole Sodium 40 mg 01/03/21 21:00 01/04/21 08:25 Pantoprazole 40 Mg Tablet PO 40 mg BID KEYA Administration Polyethylene Glycol 17 gm 01/04/21 09:00 01/04/21 08:24 Polyethylene Glycol 3350 17 Gm Powd.Pack PO 17 gm DAILY KEYA Administration Tamsulosin HCl 0.4 mg 01/03/21 21:00 01/03/21 21:04 Tamsulosin 0.4 Mg Cap.Er.24h PO Not Given HS KEYA Intake and Output 01/03/21 01/04/21 01/04/21 22:59 06:59 14:59 Intake Total 200 Balance 200 Intake: Oral 200 Other: Voiding Method Toilet Weight 122.47 kg 122.47 kg Patient Weight 01/05/21 06:59 Weight 122.47 kg 01/03/21 17:36 01/03/21 17:36 EKG Interpretations (text) Sinus rhythm Assessment and Plan Assessment: #1 symptoms of chest pressure with some shortness of breath and radiation to the shoulders, and acute coronary event has been ruled out, EKG shows no evidence of ischemia and troponins have been negative 3 #2 hypertension #3 GERD #4 remote history of smoking Plan: From cardiology's perspective, medications were reviewed and will continue the same. We'll obtain a 2-D echo with Doppler study to assess cardiac structure and function. Continue to monitor the patient overnight. We'll obtain a stress test in the morning. Further recommendations to follow. SHEET SORTER note has been reviewed, I agree with a documented findings and plan of care. Patient was seen and examined.
[2021-01-04] MEDS ORDERED: REGADENOSON 0.4 MG/5 ML SYRINGE IV PRN (14:42)
[2021-01-04] MEDS ORDERED: AMINOPHYLLINE 500 MG/20 ML VIAL IV PRN (14:42)
[2021-01-04] MEDS ORDERED: CAFFEINE CITRATE 60 MG/3 ML VIAL IV PRN (14:42)
[2021-01-04] MEDS: TAMSULOSIN 0.4 MG CAP.ER.24H PO SCH (17:22)
[2021-01-04] MEDS: ASPIRIN 81 MG PO SCH (20:53)
[2021-01-04] MEDS: amLODIPine 5 MG TAB PO SCH (20:54)
[2021-01-04] MEDS: LOSARTAN 50 MG TAB PO SCH (20:55)
[2021-01-05] MEDS: SODIUM CHLORIDE 0.9% 1,000 ML IV SCH (01:24)
[2021-01-05] MEDS: DOCUSATE 100 MG CAP PO SCH (08:37)
[2021-01-05] MEDS: PANTOPRAZOLE 40 MG TABLET PO SCH (08:37)
--- NOTE | 2021-01-05 10:13 | P.PN ---
Subjective This is a pleasant 70-year-old male past medical history significant for hypertension, gastroesophageal reflux disease and former nicotine dependence. He does not follow regularly with a public area attendant. He is seen and examined resting comfortably in no acute distress. He continues to have ongoing chest discomfort with no specific aggravating or alleviating factors. The patient is constant in nature and does not worsen with exertion or activity. He is scheduled to undergo a stress test today. Blood pressure 105/64 heart rate 69 afebrile maintaining oxygen saturation on room air. Currently maintained on amlodipine 5 mg daily, aspirin 81 mg daily and losartan 100 mg daily. GENERAL: Well-appearing, well-nourished and in no acute distress. NECK: Supple without JVD or thyromegaly. LUNGS: Breath sounds clear to auscultation bilaterally. Respiration equal and unlabored. No wheezes, rales or rhonchi. HEART: Regular rate and rhythm without murmurs, rubs or gallops. S1 and S2 heard. EXTREMITIES: Normal range of motion, no edema. No clubbing or cyanosis. Peripheral pulses intact. ASSESSMENT Chest pain Hypertension Gastroesophageal reflux disease Remote history of smoking Obesity, BMI 36 PLAN Proceed with Lexiscan stress test today as previously ordered. If any reversibility is noted cardiac catheterization will likely be obtained. The stress test is normal he may be discharged from a cardiac perspective to follow-up in the office with Dr. Valentino in 2 weeks. Nurse Practitioner note has been reviewed, I agree with a documented findings and plan of care. Patient was seen and examined. Objective - Vital Signs Vital signs: Vital Signs Temp 97.7 F 01/05/21 07:00 Pulse 69 01/05/21 07:00 Resp 18 01/05/21 08:00 BP 105/64 01/05/21 07:00 Pulse Ox 98 01/05/21 07:00 Intake & Output 01/04/21 01/05/21 01/05/21 18:59 06:59 18:59 Intake Total 400 Balance 400 Weight 122.47 kg Intake: Oral 400 Other: Voiding Method Toilet # Voids 2 2 - Labs CBC & Chem 7: 01/03/21 17:36 01/03/21 17:36 Labs: Abnormal Lab Results - Last 24 Hours (Table) 01/04/21 Range/Units 11:10 D-Dimer 0.63 H (<0.60) mg/L FEU
--- NOTE | 2021-01-05 12:38 | P.CNPUL ---
History of Present Illness Consult date: 01/05/21 Requesting physician: Dakota Lombardi Reason for consult: chest pain, other Chief complaint: Chest pain. History of present illness: Pulmonary consult dated 01/05/2021. 70-year-old male, who presents to the emergency department, on January 03. He apparently presented with chest pain. Apparently he been having chest pain on and off for the week or so prior to admission to the emergency department. In addition, he was blaming some of his complaints on his acid reflux disease and heartburn. He been taking medication for that including Tums and Maalox. Because the pain got worse, and it was not responding to his home remedies, he decided to come into the emergency department to be evaluated. In addition, he had some mild exertional dyspnea. He apparently was diaphoretic and uncomfortable according to his . The patient underwent a stress test today. The results are not yet known. Currently, he denies any shortness of breath. She denies any pulmonary issues including asthma, COPD, asthma, chronic bronchitis, etc. Typically does not have any pulmonary issues. He did smoke infrequently when he was much younger. Lab values are reviewed, and his CBC is essentially normal, although platelet count low at 1 13,000. PT INR and PTT are all normal. D-dimer is 0.63. The patient's sodium potassium chloride and CO2 are all normal. Anion gap is normal. BUN is 23 with a creatinine of 0.88. Troponins were negative 3. Chest x-ray was normal. CT angiogram was suggestive of COPD. There is some mild cardiomegaly, with a trace amount of pericardial fluid. A 3 mm left upper lobe pulmonary nodule is too small to characterize in follow-up in 12 months was recommended. The patient does have a history of acid reflux disease, kidney stones, hypertension, and extended spectrum beta lactamase producing organisms in his urine. Review of Systems REVIEW OF SYSTEMS: CONSTITUTIONAL: [Negative.] NEUROLOGIC: [ Negative.] HEENT: [ Negative.] CARDIAC: Chest pain. PULMONARY: [Negative.] GI: Heartburn, acid reflux disease. : [Negative.] RHEUMATOLOGIC: [ Negative.] IMMUNOLOGIC: [ Negative.] ENDOCRINE: [Negative. ] DERMATOLOGIC: [Negative.] Past Medical History Past Medical History: GERD/Reflux, Hypertension, Prostate Disorder Additional Past Medical History / Comment(s): kidney stones, prostate ca with radiation History of Any Multi-Drug Resistant Organisms: None Reported Date of last positivie culture/infection: 03/02/18 MDRO Source:: ESBL URINE Past Surgical History: Orthopedic Surgery, Tonsillectomy Additional Past Surgical History / Comment(s): kidney stent, kidney stone removal, rt hip replac, Past Anesthesia/Blood Transfusion Reactions: No Reported Reaction Past Psychological History: No Psychological Hx Reported Smoking Status: Never smoker Past Alcohol Use History: Occasional Past Drug Use History: None Reported Medications and Allergies Home Medications Medication Instructions Recorded Confirmed Type Losartan Potassium [Cozaar] 100 mg PO HS 03/02/18 01/03/21 History Omeprazole 40 mg PO BID 03/02/18 01/03/21 History Tamsulosin [Flomax] 0.4 mg PO W/SUPPER 03/02/18 01/03/21 History amLODIPine [Norvasc] 5 mg PO HS 03/02/18 01/03/21 History Docusate [Colace] 100 mg PO BID 01/03/21 01/03/21 History polyethylene glycoL 3350 [Miralax] 17 gm PO DAILY 01/03/21 01/03/21 History Allergies Allergy/AdvReac Type Severity Reaction Status Date / Time No Known Allergies Allergy Verified 01/03/21 20:39 Physical Exam Osteopathic Statement: *. No significant issues noted on an osteopathic structural exam other than those noted in the History and Physical/Consult. Vitals: Vital Signs Temp Pulse Resp BP Pulse Ox 01/05/21 08:00 18 01/05/21 07:00 97.7 F 69 16 105/64 98 01/05/21 02:00 97.4 F L 50 L 18 111/64 97 01/04/21 20:00 97.9 F 73 18 114/73 99 01/04/21 15:00 98.3 F 80 16 110/67 97 01/04/21 14:00 67 18 Intake and Output 01/04/21 01/05/21 01/05/21 22:59 06:59 14:59 Intake Total 200 Balance 200 Intake: Oral 200 Other: # Voids 1 2 Weight 122.47 kg No acute distress, oriented 3. HEENT examination is grossly unremarkable. Neck supple. Full range of motion. No adenopathy thyromegaly or neck vein distention. Cardiovascular examination reveals regular rhythm rate. S1-S2 normal. No S3 or S4. No discernible murmur noted. Heart rate 68 bpm. Lungs reveal clear breath sounds. Breath sounds are equal bilaterally. No adventitious lung sounds including wheezes rhonchi or crackles. Abdomen soft bowel sounds are heard. No masses or tenderness. Extremities are intact. No cyanosis clubbing or edema. Skin is without rash or lesion. Neurologic examination is brief but nonfocal. Results - Laboratory Findings CBC and BMP: 01/03/21 17:36 01/03/21 17:36 PT/INR, D-dimer PT 11.2 sec (9.0-12.0) 01/03/21 17:36 INR 1.1 (<1.2) 01/03/21 17:36 D-Dimer 0.63 mg/L FEU (<0.60) H 01/04/21 11:10 Abnormal lab findings: Abnormal Labs 01/03/21 01/03/21 01/04/21 17:36 17:36 11:10 Plt Count 113 L D-Dimer 0.63 H BUN 23 H Glucose 102 H - Diagnostic Findings Chest x-ray: image reviewed CT scan - chest: image reviewed Assessment and Plan Assessment: Chest pain, rule out intrinsic cardiac disease, a should undergoing a stress test/Lexiscan today. No history to suggest any significant pulmonary disease at this time. History of acid reflux disease. History of hypertension. History of nephrolithiasis. Prior history of extended spectrum beta-lactamase producing bacteria in his urine. Plan: Plan dated 01/05/2021. The patient's doing well. The patient may very well be discharged later today if the stress test was negative. He's not having any respiratory issues at this time. It seems like his acid reflux disease is quite a problem. If he hasn't already, he should see a application architect. A 24-hour pH probe to check for pathologic acid reflux might be beneficial. Also, esophageal manometry to rule out or rule in achalasia would be beneficial as well. Time with Patient: Greater than 30
--- NOTE | 2021-01-05 12:40 | ECHOF ---
Referral Reason:chest pain MEASUREMENTS -------- HEIGHT: 182.9 cm WEIGHT: 122.5 kg BP: 111/64 RVIDd: 3.6 cm (< 3.3) IVSd: 1.3 cm (0.6 - 1.1) LVIDd: 4.3 cm (3.9 - 5.3) LVPWd: 1.4 cm (0.6 - 1.1) IVSs: 2.0 cm LVIDs: 3.0 cm LVPWs: 2.2 cm LA Diam: 3.7 cm (2.7 - 3.8) LAESV Index (A-L): 22.09 ml/m Ao Diam: 4.0 cm (2.0 - 3.7) AV Cusp: 2.5 cm (1.5 - 2.6) MV EXCURSION: 23.948 mm (> 18.000) MV EF SLOPE: 146 mm/s (70 - 150) EPSS: 0.4 cm MV E Clarence: 0.51 m/s MV DecT: 316 ms MV A Clarence: 0.71 m/s MV E/A Ratio: 0.72 FINDINGS -------- Sinus rhythm. This was a technically adequate study. The left ventricular size is normal. There is moderate concentric left ventricular hypertrophy. O verall left ventricular systolic function is normal with, an EF between 55 - 60 %. The right ventricle is mildly enlarged. Normal LA size by volume 22+/-6 ml/m2. The right atrium is normal in size. The aortic valve is trileaflet and appears structurally normal. The mitral valve is normal. The tricuspid valve appears structurally normal. Trace/mild (physiologic) pulmonic regurgitation. The aortic root is dilated measuring 4.0cm. IVC Not well visulized. There is no pericardial effusion. CONCLUSIONS -------- 1. The left ventricular size is normal. 2. There is moderate concentric left ventricular hypertrophy. 3. Overall left ventricular systolic function is normal with, an EF between 55 - 60 %. 4. The right ventricle is mildly enlarged. 5. Trace/mild (physiologic) pulmonic regurgitation. 6. The aortic root is dilated measuring 4.0cm. 7. There is no pericardial effusion. INDUSTRIAL AERIAL INSTALLER: Mari Patel RDCS
[2021-01-05 12:51] LABS: Calcium 8.4 mg/dL (8.7-10.3); Magnesium 2.1 mg/dL (1.5-2.4); Non-African American GFR(CKD) 75.9 (60.0-200.0); Potassium 3.9 mmol/L (3.5-5.5)
--- NOTE | 2021-01-05 13:06 | NM ---
EXAMINATION TYPE: NM stress lexiscan cardiolite DATE OF EXAM: 01/05/2021 COMPARISON: Chest CT from yesterday. HISTORY: Chest pain. History of hypertension. TECHNIQUE: After the intravenous administration of 10.4 mCi Tc 99m Sestamibi - Cardiolite resting SP ECT images acquired 45 minutes post injection. The patient received 0.4mg Lexiscan, 25.2 mCi Tc 99m Sestamibi - Stress images obtained [address] injection FINDINGS: Review of stress and rest SPECT images demonstrates no distinct perfusion abnormality. Gated analysi s shows normal wall motion with an estimated left ventricular ejection fraction of 47 %. IMPRESSION: No scintigraphic evidence for reversible ischemia.
[2021-01-05] MEDS: polyethylene glycoL 3350 17 GM POWD.PACK PO SCH (13:12)
--- NOTE | 2021-01-05 14:36 | EST ---
EXERCISE STRESS DATE OF SERVICE: January 05, 2021. AGE: 70 SEX: M HT: 6"` WT: 270 lbs. PROTOCOL: Lexiscan STAGE: N/A DURATION OF EXERCISE: N/A HEART RATE REST: 78 BLOOD PRESSURE REST: 106/77 MAXIMUM HEART RATE ACHIEVED: 98 MAXIMUM BLOOD PRESSURE: 108/76 85% MPHR: 128 100% MPHR: 150 METS: N/A STRESS DATA: Pretesting physical examination showed a heart rate of 78, pressure is 106/78 mmHg. Baseline EKG showed sinus mechanism 0.4 mg of Lexiscan given over 15 seconds per protocol. Max heart rate was 98 beats per minute and maximum blood pressure was 106/77 mmHg. Clinically, the patient has no symptoms and the EKG did not show any significant ST or T-wave abnormalities concerning for ischemia. CONCLUSION: 1. Nondiagnostic electrocardiogram stress testing in response to Lexiscan. 2. Please follow up on the Cardiolite portion on a separate report from Radiology Department. MMODL / IJN: [id number] /
[2021-01-05 15:13] VITALS: BP 102/62; PULSE 75; RESP 16; TEMP 98.1
--- NOTE | 2021-01-05 22:25 | DS ---
DISCHARGE SUMMARY FINAL DIAGNOSES: 1. Chest pain possibly musculoskeletal, negative stress test. 2. No significant pulmonary disease per Dr. Power. 3. Gastroesophageal reflux disease. 4. Hypertension. 5. Nephrolithiasis. 6. D-dimer 0.63 without any evidence of pulmonary embolism. 7. Hypertension. 8. History of kidney disease. 9. Gastroesophageal reflux disease. 10.Obesity with body mass of 36.6. DISCHARGE DISPOSITION: The patient will be discharged in stable condition with guarded prognosis. HISTORY OF PRESENT ILLNESS: This 70-year-old gentleman with a past medical history of multiple medical problems as mentioned earlier, being followed by Dr. Cervantes in the outpatient setting was admitted with chest pain. Myocardial infarction ruled out. Cardiology performed a stress test which was negative. Dr. Power saw the patient. Ruled out possible pulmonary disease. The patient improved significantly. Patient being discharged in stable condition with guarded prognosis. On exam, vitals stable. Cardiovascular: S1, S2. Abdomen soft. Nervous system: No focal deficits. DISCHARGE ADVICE AND MEDICATIONS: 1. Diet is cardiac diet. 2. Follow up with Dr. Cervantes in 2-3 days. 3. Follow up with Cardiology, pulmonology as recommended. 4. Colace 100 mg b.i.d. 5. Cozaar 100 mg q.h.s. 6. Flomax 0.4 subcu daily. 7. MiraLAX p.r.n. 8. Norvasc 5 mg q.h.s. 9. Omeprazole 40 mg p.o. b.i.d. Once again, the patient being discharged in stable with guarded prognosis. MMODL / IJN: [id number] /
== END 2021-01-05 16:47 | disposition home or self-care (01) ==
LOC: EC 16:22 → 6NMEDSUR 20:21
PROVIDERS: ADMIT Hospitalist; ATTEND Hospitalist
DX: R07.89 Other chest pain (principal); I11.9 Hypertensive heart disease without heart failure; R79.89 Other specified abnormal findings of blood chemistry; R91.1 Solitary pulmonary nodule; R06.02 Shortness of breath; R42 Dizziness and giddiness; K21.9 Gastro-esophageal reflux disease without esophagitis; R61 Generalized hyperhidrosis; R05 Cough; N20.0 Calculus of kidney; Z20.822 Contact with and (suspected) exposure to COVID-19; E66.9 Obesity, unspecified; Z68.36 Body mass index [BMI] 36.0-36.9, adult; Z79.1 Long term (current) use of non-steroidal anti-inflammatories (NSAID); Z79.82 Long term (current) use of aspirin; Z79.899 Other long term (current) drug therapy; Z16.12 Extended spectrum beta lactamase (ESBL) resistance; Z87.442 Personal history of urinary calculi; Z87.891 Personal history of nicotine dependence; Z85.46 Personal history of malignant neoplasm of prostate; Z92.3 Personal history of irradiation; Z96.641 Presence of right artificial hip joint; Z98.890 Other specified postprocedural states
CPT/HCPCS: 99285; 36415; 93005 ×2; 93017; 93306; 85379; 80061; 80053; 80048; 83735 ×2; 84484 ×2; 85025; 85610; 85730; 87635; 71046; 71275; 78452; G0378 ×3; A9500; J2785; Q9967

== ENCOUNTER → 2021-01-23 | Outpatient (CLI) | payer MEDICARE ==
--- NOTE | 2021-01-23 13:52 | FL ---
EXAMINATION TYPE: FL barium swallow DATE OF EXAM: 01/23/2021 CLINICAL HISTORY: Reflux TECHNIQUE: A double contrast esophagram is performed utilizing air and barium. A total of 1 minute and 21 seconds of fluoroscopic time was utilized during procedure and 65 images obtained. COMPARISON: None FINDINGS: The esophagus shows normal motility and emptying into the stomach. No evidence of hiatal h ernia or stricture noted. No significant gastroesophageal reflux was seen during real time performanc e of this study. No hiatal hernia seen. IMPRESSION: No significant abnormality is seen to account for patient's symptoms.
== END | disposition home or self-care (01) ==
LOC: RADUSWWP 08:52
PROVIDERS: ATTEND Family Medicine
DX: K21.9 Gastro-esophageal reflux disease without esophagitis (principal)
CPT/HCPCS: 74220

== ENCOUNTER 2022-02-10 13:55 | Observation (INO) | payer MEDICARE ==
[2022-02-10] MEDS ORDERED: HYDROmorphone 0.5 MG/0.5 ML SYRINGE IVP STA (14:28)
[2022-02-10] MEDS ORDERED: DIPH,PERTUS(ACELL)TETVAC-LF 0.5 ML VIAL IM ONE (14:28)
[2022-02-10] MEDS ORDERED: cefTRIAXone IN SWFI 1,000 MG/10 ML SYRINGE IVP STA (14:30)
[2022-02-10] MEDS ORDERED: SODIUM CHLORIDE 0.9% IVPB ONE (14:31)
[2022-02-10] MEDS ORDERED: VANCOMYCIN IVPB ONE (14:31)
[2022-02-10] MEDS ORDERED: VANCOMYCIN IV PER PHARMACY 1 EACH MISC MISCELLANE PRN (14:32)
[2022-02-10 14:45] LABS: Basophils % (A) 1 %; Eosinophils # (A) 0.1 k/uL (0-0.7); Eosinophils % (A) 2 %; HCT 48.3 % (39.0-53.0); HGB 16.3 gm/dL (13.0-17.5); Lymphocytes # (A) 0.7 k/uL (1.0-4.8); Lymphocytes % (A) 12 %; MCH 30.1 pg (25.0-35.0); MCHC 33.8 g/dL (31.0-37.0); MCV 89.1 fL (80.0-100.0); Mean Platelet Volume 8.1; Monocytes # (A) 0.5 k/uL (0-1.0); Monocytes % (A) 8 %; Neutrophils # (A) 4.6 k/uL (1.3-7.7); Neutrophils % (A) 76 %; Platelet Count 117 k/uL (150-450); RBC 5.42 m/uL (4.30-5.90); RDW 12.6 % (11.5-15.5)
[2022-02-10 14:56] LABS: ALT 22 U/L (4-49); AST 24 U/L (17-59); African American GFR (CKD) >90 (>60 ml/min/1.73 sqM); Albumin 4.5 g/dL (3.5-5.0); Alkaline Phosphatase 78 U/L (38-126); Anion Gap 7 mmol/L; Blood Urea Nitrogen 19 mg/dL (9-20); Calcium 8.7 mg/dL (8.4-10.2); Carbon Dioxide 23 mmol/L (22-30); Chloride 108 mmol/L (98-107); Glucose 121 mg/dL (74-99); Non-African American GFR(CKD) 80 (>60 ml/min/1.73 sqM); Potassium 3.9 mmol/L (3.5-5.1); Sodium 138 mmol/L (137-145); Total Protein 6.9 g/dL (6.3-8.2)
[2022-02-10] MEDS ORDERED: VANCOMYCIN 2,000 MG in SODIUM CHLORIDE 0.9% 500 ML 500 ML IVPB ONE (15:00)
[2022-02-10 15:10] LABS: Prothrombin Time 10.8 sec (9.0-12.0)
--- NOTE | 2022-02-10 15:16 | XR ---
EXAMINATION TYPE: XR tibia fibula LT DATE OF EXAM: 02/10/2022 CLINICAL HISTORY: pain TECHNIQUE: AP and lateral images of the left tibia and fibula are obtained. COMPARISON: None. FINDINGS: There is no acute fracture/dislocation evident. The joint spaces appear within normal galaviz its. Soft tissue injury noted. No evidence of radiopaque foreign body. IMPRESSION: There is no acute fracture or dislocation seen. ICD 10 NO FRACTURE, INITIAL EVALUATION
--- NOTE | 2022-02-10 15:23 | ED ---
General Adult HPI - General Chief complaint: Trauma Stated complaint: Large Laceration Left Leg Time Seen by Provider: 02/10/22 14:26 Source: patient, RN notes reviewed, old records reviewed Mode of arrival: ambulatory Limitations: no limitations - History of Present Illness Initial comments: 71-year-old male presenting with wound to the left lateral lower extremity. 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 He lost control in the auger hit the lateral aspect of his leg. There was significant bleeding and contamination of the wound. Patient denies numbness to the foot. He had a towel wrapped around the injury prior to arrival. He was wearing shorts at the time. His tetanus is not up-to-date. - Related Data Home Medications Medication Instructions Recorded Confirmed Losartan Potassium [Cozaar] 100 mg PO HS 03/02/18 01/03/21 Omeprazole 40 mg PO BID 03/02/18 01/03/21 Tamsulosin [Flomax] 0.4 mg PO W/SUPPER 03/02/18 01/03/21 amLODIPine [Norvasc] 5 mg PO HS 03/02/18 01/03/21 Docusate [Colace] 100 mg PO BID 01/03/21 01/03/21 polyethylene glycoL 3350 [Miralax] 17 gm PO DAILY 01/03/21 01/03/21 Allergies Allergy/AdvReac Type Severity Reaction Status Date / Time No Known Allergies Allergy Verified 02/10/22 14:16 Review of Systems ROS Statement: Those systems with pertinent positive or pertinent negative responses have been documented in the HPI. ROS Other: All systems not noted in ROS Statement are negative. Past Medical History Past Medical History: GERD/Reflux, Hypertension, Prostate Disorder Additional Past Medical History / Comment(s): kidney stones, prostate ca with radiation History of Any Multi-Drug Resistant Organisms: None Reported Date of last positivie culture/infection: 03/02/18 MDRO Source:: ESBL URINE Past Surgical History: Orthopedic Surgery, Tonsillectomy Additional Past Surgical History / Comment(s): kidney stent, kidney stone removal, rt hip replac, Past Anesthesia/Blood Transfusion Reactions: No Reported Reaction Past Psychological History: No Psychological Hx Reported Smoking Status: Never smoker Past Alcohol Use History: Occasional Past Drug Use History: None Reported General Exam Limitations: no limitations General appearance: alert, in no apparent distress Head exam: Present: atraumatic, normocephalic Eye exam: Present: normal appearance, PERRL ENT exam: Present: normal exam Neck exam: Present: normal inspection. Absent: tenderness, meningismus Respiratory exam: Present: normal lung sounds bilaterally. Absent: respiratory distress, wheezes Cardiovascular Exam: Present: regular rate, normal rhythm GI/Abdominal exam: Present: soft. Absent: distended, tenderness Extremities exam: Present: other (15 cm laceration with exposed muscle belly, fascia is significant contamination. No arterial hemorrhage. There is a V- shaped laceration at the distal margin.) Neurological exam: Present: alert, oriented X3, CN II-XII intact. Absent: motor sensory deficit, reflexes normal Psychiatric exam: Present: normal affect, normal mood Skin exam: Present: warm Course Vital Signs 02/10/22 14:13 Temperature 98.3 F Pulse Rate 98 Respiratory 18 Rate Blood Pressure 112/67 O2 Sat by Pulse 97 Oximetry EKG Findings - EKG Comments: EKG Findings:: EKG: Sinus rhythm, left axis deviation, rate of 96, VA interval 164, QRS duration 86, QTC 417 Medical Decision Making - Medical Decision Making 71-year-old male with laceration and devitalized tissue to the left lateral lower extremity. There does not appear to be any bony involvement and x-ray confirms no fracture. The wound was significantly contaminated I will wash this out in the emergency department with 2 L of normal saline under pressure. Patient was started on antibiotics including ceftriaxone and vancomycin for contaminated wound. His tetanus was updated. His distal pulses are intact and there is no arterial hemorrhage. A dressing is applied and I contacted orthopedics for operative washout. The patient has not eaten anything today. Laceration measures approximately 15 cm x 5 cm The x-ray is negative for fracture by shows soft tissue gas extending to the lateral malleolus which increases her risk of infection. - Lab Data Result diagrams: 02/10/22 14:37 02/10/22 14:37 Lab Results 02/10/22 02/10/22 02/10/22 Range/Units 14:37 14:37 14:37 WBC 6.0 (3.8-10.6) k/uL RBC 5.42 (4.30-5.90) m/uL Hgb 16.3 (13.0-17.5) gm/dL Hct 48.3 (39.0-53.0) % MCV 89.1 (80.0-100.0) fL MCH 30.1 (25.0-35.0) pg MCHC 33.8 (31.0-37.0) g/dL RDW 12.6 (11.5-15.5) % Plt Count 117 L (150-450) k/uL MPV 8.1 Neutrophils % 76 % Lymphocytes % 12 % Monocytes % 8 % Eosinophils % 2 % Basophils % 1 % Neutrophils # 4.6 (1.3-7.7) k/uL Lymphocytes # 0.7 L (1.0-4.8) k/uL Monocytes # 0.5 (0-1.0) k/uL Eosinophils # 0.1 (0-0.7) k/uL Basophils # 0.0 (0-0.2) k/uL PT 10.8 (9.0-12.0) sec INR 1.0 (<1.2) APTT 23.0 (22.0-30.0) sec Sodium 138 (137-145) mmol/L Potassium 3.9 (3.5-5.1) mmol/L Chloride 108 H (98-107) mmol/L Carbon Dioxide 23 (22-30) mmol/L Anion Gap 7 mmol/L BUN 19 (9-20) mg/dL Creatinine 0.96 (0.66-1.25) mg/dL Est GFR (CKD-EPI)AfAm >90 (>60 ml/min/1.73 sqM) Est GFR (CKD-EPI)NonAf 80 (>60 ml/min/1.73 sqM) Glucose 121 H (74-99) mg/dL Calcium 8.7 (8.4-10.2) mg/dL Total Bilirubin 1.0 (0.2-1.3) mg/dL AST 24 (17-59) U/L ALT 22 (4-49) U/L Alkaline Phosphatase 78 (38-126) U/L Total Protein 6.9 (6.3-8.2) g/dL Albumin 4.5 (3.5-5.0) g/dL Disposition Clinical Impression: Laceration Disposition: ADMITTED IP TO THIS HOSP Condition: Stable Is patient prescribed a controlled substance at d/c from ED?: No Referrals: Mana Cervantes DO [Primary Care Provider] - 1-2 days Time of Disposition: 15:28
[2022-02-10] MEDS ORDERED: NALOXONE 0.4 MG/ML 1 ML VIAL IV PRN (15:30)
[2022-02-10] MEDS ORDERED: HYDROmorphone 0.5 MG/0.5 ML SYRINGE IVP PRN (15:30)
--- NOTE | 2022-02-10 16:18 | P.HPOR ---
History of Present Illness H&P Date: 02/10/22 This patient is a 71- year old male with a past medical history of hypertension that presented to [facility] emergency department this afternoon with complaints of a left lower extremity injury. 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 The patient states there was significant contamination and bleeding at the time of injury. He was wearing shorts at the time. The patient presented to the emergency department for evaluation. X-rays of the left tibia and fibula revealed no fracture. The laceration was irrigated in the emergency department. The patient was started on IV antibiotics and his tetanus was updated. Orthopedic surgery was contacted for further treatment. Patient was evaluated in the emergency department this afternoon. He denies any additional injuries or complaints at this time. He is complaining of mild pain along the lateral aspect of his left lower leg. He denies numbness or tingling of the left lower extremity. His last meal was last evening at dinner. Vital signs stable. Past Medical History Past Medical History: GERD/Reflux, Hypertension, Prostate Disorder Additional Past Medical History / Comment(s): kidney stones, prostate ca with radiation History of Any Multi-Drug Resistant Organisms: None Reported Date of last positivie culture/infection: 03/02/18 MDRO Source:: ESBL URINE Past Surgical History: Orthopedic Surgery, Tonsillectomy Additional Past Surgical History / Comment(s): kidney stent, kidney stone removal, rt hip replac, Past Anesthesia/Blood Transfusion Reactions: No Reported Reaction Past Psychological History: No Psychological Hx Reported Smoking Status: Never smoker Past Alcohol Use History: Occasional Past Drug Use History: None Reported Medications and Allergies Home Medications Medication Instructions Recorded Confirmed Type Losartan Potassium [Cozaar] 100 mg PO HS 03/02/18 01/03/21 History Tamsulosin [Flomax] 0.4 mg PO W/SUPPER 03/02/18 01/03/21 History amLODIPine [Norvasc] 5 mg PO HS 03/02/18 01/03/21 History ALPRAZolam [Xanax] 0.5 mg PO BID PRN 02/10/22 02/10/22 History Loratadine [Claritin] 10 mg PO DAILY PRN 02/10/22 02/10/22 History Pantoprazole [Protonix] 40 mg PO DAILY 02/10/22 02/10/22 History Allergies Allergy/AdvReac Type Severity Reaction Status Date / Time No Known Allergies Allergy Verified 02/10/22 16:00 Physical Examination On examination, the patient is sitting up in a gurney in no apparent distress. He is alert and oriented 3. His head appears normocephalic and atraumatic. His breathing appears nonlabored. A focused examination of the left lower extremity is conducted. On inspection of the left lower leg, there is about a 15 cm laceration to the lateral aspect of the lower leg. Underlying muscle and tendon visible. There is no pain with palpation of the knee. No pain with PROM of the hip or hip. Patient has good strength and range of motion of the left ankle and toes. Motor and sensory function is grossly intact of the left lower extremity. The dorsalis pedis pulse is easily palpable, left lower extremity warm and well-perfused. Results Left tibia and fibula x-ray 02/10/22: No acute fractures. - Labs Labs: Abnormal Lab Results - Last 24 Hours (Table) 02/10/22 02/10/22 Range/Units 14:37 14:37 Plt Count 117 L (150-450) k/uL Lymphocytes # 0.7 L (1.0-4.8) k/uL Chloride 108 H (98-107) mmol/L Glucose 121 H (74-99) mg/dL H & H 02/10/22 Range/Units 14:37 Hgb 16.3 (13.0-17.5) gm/dL Hct 48.3 (39.0-53.0) % Coagulation 02/10/22 Range/Units 14:37 INR 1.0 (<1.2) Result Diagrams: 02/10/22 14:37 02/10/22 14:37 Assessment and Plan Assessment: Left lower extremity laceration Plan: - Patient was discussed with Dr. Higgins. Recommend formal I&D and closure of the left lower extremity laceration in the OR this afternoon. Patient is NPO and has not eaten since last evening. This was discussed with the patient and he is in agreement to this plan.
[2022-02-10] MEDS ORDERED: LACTATED RINGERS 1,000 ML IV ONE (17:22)
[2022-02-10] MEDS ORDERED: PROPOFOL 10 MG/ML 20 ML VIAL IV ONE (18:33)
[2022-02-10] MEDS ORDERED: ROCURONIUM 10 MG/ML (5 ML VIAL) IV ONE (18:33)
[2022-02-10] MEDS ORDERED: LIDOCAINE 2% INJ 20 MG/ML (2 ML VIAL) ONE (18:33)
[2022-02-10] MEDS ORDERED: MIDAZOLAM 2 MG/2 ML VIAL ONE (18:33)
[2022-02-10] MEDS ORDERED: SUCCINYLCHOLINE CHLORIDE 100 MG/5 ML SYR IV ONE (18:33)
[2022-02-10] MEDS ORDERED: fentaNYL (PF) 50 MCG/ML 2 ML AMP ONE (18:33)
--- NOTE | 2022-02-10 19:33 | P.OP ---
Date of Procedure: 02/10/22 Procedure(s) Performed: PREOPERATIVE DIAGNOSES: 1. Right lower leg 10 cm contaminated laceration into skin, subcutaneous, fascia, muscle POSTOPERATIVE DIAGNOSES: 1. Right lower leg 10 cm contaminated laceration into skin, subcutaneous, fascia, muscle PROCEDURES PERFORMED: 1. Right lower leg 10 cm contaminated wound exploration with irrigation/sharp debridement of devitalized skin and subcutaneous tissue 2. Multilayer closure 10 cm laceration (skin and repair of muscular fascia (2 muscles)) 3. Application of negative pressure dressing over pamella drain (Prevena wound vac) ANESTHESIA: LMA (general) MEDIA CONSULTANT: None COMPLICATIONS: None ESTIMATED BLOOD LOSS: 2 mL. DISPOSITION: To post-anesthesia care unit INDICATIONS: Mr. Marie is a 71 year old [place] who sustained an injury to the right lower leg while using a soybean augur. The injury consists of a deep laceration to the posterolateral lower leg, about 10 cm, with some contamination due to the soybean augur being a farm implement. He has full motion of his toes and ankle, with no numbness of the lateral foot or first dorsal web space noted. Tetanus prophylaxis has been given, along with Vancomycin and Rocephin in the ER. Regular penicillin will also be given. I recommended exploration and debridement of the open wound. I have discussed the steps of the operation as well as potential risks and complications as being inclusive of, but not limited to: Bleeding, infection, scarring, discomfort, blood vessel and/or nerve damage, weakness, muscular scarring tendon injury, reflex sympathetic dystrophy, persistent pain, anesthesia risks, , and other risks. The patient wishes to proceed with surgery and has signed a consent form. PROCEDURE: After appropriate consent was obtained, the patient was taken to the operating room placed in the supine position. Anesthesia was initiated, and after confirmation of adequate anesthesia, the patient was carefully positioned. Care was taken to make sure that all pressure points were adequately padded. Prepping and draping were completed in the usual aseptic fashion using Hibiclens and betadine prep. Timeout was called, confirming patient identity, side, procedure, and administration of antibiotics. The wound was explored first. The laceration occurred at the junction between the superficial posterior and lateral compartments. There was some dissection along the posterior aspect of the lateral gastroc muscle but no gross contamination of this cavity. No significant foreign objects or debris/dirt was noted within the open wound. The wound measured approximately 10 cm in size. Preliminary irrigation using pulsatile saline 1.5 L was performed. Debridement of devitalized skin and subcu tissue was undertaken sharply using a knife. Care was taken to identify and protect any visible neurovascular structures. Specifically, the peroneal nerve was located anterior to the wound, and therefore was not at risk for injury. Preliminary closure of the muscular fascia over the exposed gastrocnemius muscle and peroneus brevis muscle proceeded uneventfully, using 0 Vicryl suture. The wound was then thoroughly re-irrigated once again using an additional 1.5 L of normal saline in pulsatile fashion. Skin was then closed under no significant tension using interrupted 3-0 nylon suture. The wound was closed over a pamella drain and a Prevena wound vac was applied to the surface of the wound. Suction without leak was confirmed. Patient tolerated the procedure well and taken to recovery room in stable condition. Sponge and needle counts were correct.
[2022-02-10] MEDS ORDERED: ONDANSETRON 4 MG/2 ML VIAL IVP ONE (19:52)
[2022-02-10] MEDS ORDERED: DEXAMETHASONE SOD PHOSPHATE 10 MG/ML 1 ML VIAL IVP ONE (19:53)
[2022-02-10] MEDS: HYDROcodone/APAP 5-325MG 1 EACH TAB PO PRN (20:21)
[2022-02-10] MEDS ORDERED: PENICILLIN G POTASSIUM 5,000,000 UNIT in DEXTROSE 5% IN WATER 100 ML IVPB ONE ×2 (21:00)
[2022-02-10] MEDS: SODIUM CHLORIDE 0.9% 1,000 ML IV SCH (21:34)
[2022-02-10] MEDS ORDERED: amLODIPine 5 MG TAB PO SCH (22:30)
[2022-02-10] MEDS ORDERED: LOSARTAN 50 MG TAB PO SCH (22:30)
[2022-02-11] MEDS: HYDROcodone/APAP 5-325MG 1 EACH TAB PO PRN ×4 (02:19→22:38)
[2022-02-11 02:43] VITALS: RESP 16
[2022-02-11] MEDS ORDERED: VANCOMYCIN 2,000 MG in SODIUM CHLORIDE 0.9% 500 ML 500 ML IVPB SCH ×2 (06:00→18:00)
[2022-02-11 08:10] LABS: African American GFR (CKD) >90 (>60 ml/min/1.73 sqM); Non-African American GFR(CKD) 88 (>60 ml/min/1.73 sqM)
[2022-02-11] MEDS: polyethylene glycoL 3350 17 GM POWD.PACK PO SCH (08:10)
[2022-02-11] MEDS: TAMSULOSIN 0.4 MG CAP.ER.24H PO SCH (08:10)
[2022-02-11] MEDS: PANTOPRAZOLE 40 MG TABLET PO SCH (08:36)
--- NOTE | 2022-02-11 11:18 | P.PN ---
Subjective Progress Note Date: 02/11/22 This patient is a 71- year old male who is status-post irrigation and debridement of contaminated left lower extremity laceration on 02/10/[address] Higgins. Today's postoperative day #1. Patient is examined bedside this morning. Patient states he feels well with no complaints. He states the pain in his left lower extremity is controlled at this time. Prevena wound VAC in place with a good seal. Vital signs stable. Objective - Vital Signs Vital signs: Vital Signs Temp 98.4 F 02/11/22 07:42 Pulse 68 02/11/22 07:42 Resp 16 02/11/22 01:50 BP 108/69 02/11/22 07:42 Pulse Ox 97 02/11/22 07:42 FiO2 Intake & Output 02/10/22 02/11/22 02/11/22 18:59 06:59 18:59 Intake Total 500 1700 Output Total 200 552 600 Balance 300 1148 -600 Weight 122.47 kg Intake: IV 500 200 Intake, IV Titration 1500 Amount Penicillin G Potassium 5, 100 000,000 unit In Dextrose 5% in Water 100 ml @ 100 mls/hr IVPB ONCE ONE Rx#: [id number] Sodium Chloride 0.9% 1, 900 000 ml @ 75 mls/hr IV . [id number] [facility] Rx#:[id number] Vancomycin 2,000 mg In 500 Sodium Chloride 0.9% 500 ml 500 ml @ 167 mls/hr IVPB Q16H [facility] Rx#: [id number] Output: Urine 200 550 600 Estimated Blood Loss 2 Other: Voiding Method Urinal - Exam On examination, patient is sitting in bed in no apparent distress. He is alert and oriented 3. On inspection of his left lower extremity, there is a Prevena wound VAC in place at the lateral aspect of his left lower leg. The wound VAC has a good seal this time. Patient has good strength and range of motion of the left ankle and toes. Motor and sensory function is intact of the left lower extremity. Dorsalis pedis pulse is easily palpable. Left lower extremity is warm and well-perfused. Calf is nontender. - Labs CBC & Chem 7: 02/10/22 14:37 02/11/22 07:06 Labs: Abnormal Lab Results - Last 24 Hours (Table) 02/10/22 02/10/22 Range/Units 14:37 14:37 Plt Count 117 L (150-450) k/uL Lymphocytes # 0.7 L (1.0-4.8) k/uL Chloride 108 H (98-107) mmol/L Glucose 121 H (74-99) mg/dL Assessment and Plan Assessment: Status-post irrigation and debridement of contaminated left lower extremity laceration on 02/10/[address] Higgins. Post-operative day #1. Plan: - Leave Prevena wound vac in place at this time. - Weight bear as tolerated on left lower extremity. - Keep left lower extremity elevated for swelling control. - Infectious disease consulted for antibiotic recommendations. - Internal medicine consulted for medical management.
--- NOTE | 2022-02-11 14:39 | P.CONS ---
History of Present Illness - Reason for Consult Consult date: 02/11/22 Medical mgmt postop I&D of contaminated left lower extremity laceration - History of Present Illness This is a 71-year-old male who was recently admitted under orthopedic services and underwent irrigation and debridement of a contaminated left lower extremity laceration with Dr. Higgins. Patient is postop day #1 and we were consulted for medical management as patient follows with Dr. Kumar in the outpatient setting with history of gastroesophageal reflux disease and hypertension along with prostate disorder and past medical history of prostate cancer with radiation. Patient is a reported never smoker denies any illicit drug use and occasionally drinks some beer socially. Patient currently takes losartan and amlodipine and has been compliant with medications. [place] and assisting with reassembling a sweep auger that lost control and hit the lateral aspect of his left lower extremity. Patient apparently made a self tourniquet out of zip ties and towels and proceeded to come to the emergency department for further evaluation. 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 Patient did receive a tetanus shot in the emergency department. X-ray of the left lower extremity was done with no fracture noted and patient was given broad-spectrum antibiotics in the form of ceftriaxone and vancomycin and orthopedics admitted the patient and patient underwent OR. The laceration on ED admission measured approximately 15 cm x 5 cm and appeared contaminated with attempted washout done in the ER. There was reported no fractures noted although soft tissue with noted gas extending to the lateral malleolus. Infectious disease was also consulted. On evaluation this morning patient artery had wound VAC applied and reports is feeling well. Labs: WBC was 6.0, hemoglobin was 16.3, platelets 117, INR was 1.0, sodium 138, potassium 3.9, BUN 19, creatinine 0.96, total bili 1.0 Review Of Systems: Constitutional: No fever, no chills, no night sweats. No weight change. No weakness, fatigue or lethargy. No daytime sleepiness. EENT: No headache. No blurred vision or double vision, no loss of vision. No loss of Hearing, no ringing in the ears, no dizziness. No nasal drainage or congestion. No epistaxis. No sore throat. Lungs: No shortness of breath, cough, no sputum production. No wheezing. Cardiovascular: No chest pain, no lower extremity edema. No palpitations. No paroxysmal nocturnal dyspnea. No orthopnea. No lightheadedness or dizziness. No syncopal episodes. Abdominal: No abdominal pain. No nausea, vomiting. No diarrhea. No constipation. No bloody or tarry stools.. No loss of appetite. Genitourinary: No dysuria, increased frequency, urgency. No urinary retention. Musculoskeletal: No myalgias. No muscle weakness, no gait dysfunction, no frequent falls. No back pain. No neck pain. Integumentary: Left lower extremity laceration approximately 15 cm x 5 cm. No rash or pruritus. No unusual bruising. No change in hair or nails. Neurologic: No aphasia. No facial droop. No change in mentation. No head injury. No headache. No paralysis. No paresthesia. Psychiatric: No depression. No anxiety. No mood swings. Endocrine: No abnormal blood sugars. No weight change. No excessive sweating or thirst. No cold intolerance. Active Medications Hydrocodone Bitart/Acetaminophen (Hydrocodone/Apap 5-325mg 1 Each Tab) 1 each PO Q6HR PRN PRN Reason: Pain Last Admin: 02/11/22 08:10 Dose: 1 each Amlodipine Besylate (Amlodipine 5 Mg Tab) 5 mg PO [facility] Last Admin: 02/10/22 22:37 Dose: 5 mg Hydromorphone HCl (Hydromorphone 0.5 Mg/0.5 Ml Syringe) 0.5 mg IVP Q3HR PRN PRN Reason: Moderate Pain Last Admin: 02/10/22 21:31 Dose: 0.5 mg Sodium Chloride (Saline 0.9%) 1,000 mls @ 75 mls/hr IV .[id number] [facility] Last Admin: 02/10/22 21:34 Dose: 75 mls/hr Vancomycin HCl 2,000 mg/ (Sodium Chloride) 500 mls @ 167 mls/hr IVPB Q12H [facility] Losartan Potassium (Losartan 50 Mg Tab) 100 mg PO [facility] Last Admin: 02/10/22 22:37 Dose: 100 mg Naloxone HCl (Naloxone 0.4 Mg/Ml 1 Ml Vial) 0.2 mg IV Q2M PRN PRN Reason: Opioid Reversal Pantoprazole Sodium (Pantoprazole 40 Mg Tablet) 40 mg PO AC-BRKFST [facility] Last Admin: 02/11/22 08:36 Dose: 40 mg Polyethylene Glycol (Polyethylene Glycol 3350 17 Gm Powd.Pack) 17 gm PO DAILY [facility] Last Admin: 02/11/22 08:10 Dose: 17 gm Tamsulosin HCl (Tamsulosin 0.4 Mg Cap.Er.24h) 0.4 mg PO DAILY [facility] Last Admin: 02/11/22 08:10 Dose: 0.4 mg PHYSICAL EXAMINATION: GENERAL: The patient is alert and oriented x4, Well developed, well nourished. Obese. HEENT: Pupils are round and equally reacting to light. EOMI. no scleral icterus. No conjunctival pallor. Normocephalic, atraumatic. No pharyngeal erythema. No thyromegaly. CARDIOVASCULAR: S1 and S2 muffled PULMONARY: Clear to auscultation with no wheezing or rhonchi noted ABDOMEN: soft. Nontender on exam. obese. non-distended, normoactive bowel sounds. No palpable organomegaly. MUSCULOSKELETAL: No joint swelling or deformity. EXTREMITIES: No cyanosis, clubbing, or pedal edema. Left lower extremity wound VAC noted NEUROLOGICAL: Gross neurological examination did not reveal any focal deficits. SKIN: No rashes. Assessment: Left lower extremity laceration measuring approximately 15 cm x 5 cm status post irrigation and debridement of contaminated left lower extremity postop day #1 Hypertension, blood pressures on the softer side and takes 100 mg of losartan which will decrease to 50 for now and monitor for any signs of postoperative hypotension Gastroesophageal reflux disease Obesity GI prophylaxis DVT prophylaxis Full code Plan: Recommend to continue with current medications and management per orthopedic services. Patient is status post incision and debridement with orthopedics for lower extremity laceration with washout and started on broad-spectrum antibiotics with infectious disease consulted. Patient was updated on tetanus. Patient does have history of hypertension and takes 5 mg of Norvasc along with 100 mg of losartan daily and will cut down the losartan to 50 mg to monitor for any signs of postoperative hypotension as blood pressures have been on the softer side. Continue with weightbearing instructions and restrictions per orthopedics and patient currently has a wound VAC applied for now and will continue on IV antibiotics. Patient follows with Dr. Kumar in the outpatient setting and instructed the patient to follow up on discharge. We will continue to follow with orthopedics during hospitalization. The impression and plan of care has been dictated by Sridevi Milian, nurse practitioner as directed. Dr. Krystal MD I have performed a history and examination and MDM of this patient, discussed the same with the dictator, and agree with the dictator's assessment and plan as written ,documented as a scribe. Based on total visit time, I have performed more than 50% of the visit. Any additional findings or plans will be noted. Past Medical History Past Medical History: GERD/Reflux, Hypertension, Prostate Disorder Additional Past Medical History / Comment(s): kidney stones, prostate ca with radiation History of Any Multi-Drug Resistant Organisms: None Reported Year Discovered:: 03/02/18 MDRO Source:: ESBL URINE Past Surgical History: Orthopedic Surgery, Tonsillectomy Additional Past Surgical History / Comment(s): kidney stent, kidney stone santos candelaria, rt hip replac, Past Anesthesia/Blood Transfusion Reactions: No Reported Reaction Past Psychological History: No Psychological Hx Reported Smoking Status: Never smoker Past Alcohol Use History: Occasional Past Drug Use History: None Reported Medications and Allergies Home Medications Medication Instructions Recorded Confirmed Type Losartan Potassium [Cozaar] 100 mg PO HS 03/02/18 02/10/22 History Tamsulosin [Flomax] 0.4 mg PO DAILY 03/02/18 02/10/22 History amLODIPine [Norvasc] 5 mg PO HS 03/02/18 02/10/22 History ALPRAZolam [Xanax] 0.5 mg PO BID PRN 02/10/22 02/10/22 History Loratadine [Claritin] 10 mg PO DAILY PRN 02/10/22 02/10/22 History Pantoprazole [Protonix] 40 mg PO DAILY 02/10/22 02/10/22 History Allergies Allergy/AdvReac Type Severity Reaction Status Date / Time No Known Allergies Allergy Verified 02/10/22 16:00 Physical Exam Vitals: Vital Signs Temp Pulse Pulse Pulse Resp BP BP 02/11/22 07:42 98.4 F 68 108/69 02/11/22 07:41 98.4 F 68 108/69 02/11/22 01:50 98.5 F 77 16 116/66 02/10/22 20:13 68 121/72 02/10/22 20:12 70 119/72 02/10/22 20:11 71 118/75 02/10/22 20:10 69 115/67 02/10/22 20:09 74 123/63 02/10/22 20:00 75 18 123/74 02/10/22 19:45 77 16 124/73 02/10/22 19:29 97.0 F L 82 20 113/66 02/10/22 17:23 98.5 F 75 18 131/70 02/10/22 16:33 98.1 F 82 18 129/81 02/10/22 14:13 98.3 F 98 18 112/67 Pulse Ox 02/11/22 07:42 97 02/11/22 07:41 97 02/11/22 01:50 97 02/10/22 20:13 97 02/10/22 20:12 99 02/10/22 20:11 98 02/10/22 20:10 98 02/10/22 20:09 98 02/10/22 20:00 100 02/10/22 19:45 98 02/10/22 19:29 96 02/10/22 17:23 98 02/10/22 16:33 98 02/10/22 14:13 97 Intake and Output 02/10/22 02/11/22 02/11/22 22:59 06:59 14:59 Intake Total 700 1500 Output Total 452 300 600 Balance 248 1200 -600 Intake: IV 700 Intake, IV Titration 1500 Amount Penicillin G Potassium 5, 100 000,000 unit In Dextrose 5% in Water 100 ml @ 100 mls/hr IVPB ONCE ONE Rx#: [id number] Sodium Chloride 0.9% 1, 900 000 ml @ 75 mls/hr IV . [id number] [facility] Rx#:[id number] Vancomycin 2,000 mg In 500 Sodium Chloride 0.9% 500 ml 500 ml @ 167 mls/hr IVPB Q16H [facility] Rx#: [id number] Output: Urine 450 300 600 Estimated Blood Loss 2 Other: Voiding Method Urinal Weight 122.47 kg Results CBC & Chem 7: 02/10/22 14:37 02/11/22 07:06 Labs: Abnormal Lab Results - Last 24 Hours (Table) 02/10/22 02/10/22 Range/Units 14:37 14:37 Plt Count 117 L (150-450) k/uL Lymphocytes # 0.7 L (1.0-4.8) k/uL Chloride 108 H (98-107) mmol/L Glucose 121 H (74-99) mg/dL
[2022-02-11] MEDS: SODIUM CHLORIDE 0.9% 1,000 ML IV SCH (20:10)
[2022-02-11] MEDS ORDERED: LOSARTAN 50 MG TAB PO SCH (21:00)
--- NOTE | 2022-02-12 07:55 | P.CONS ---
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 and did have a laceration to the lateral aspect of his left lower leg patient mention there was significant contamination and bleeding in the time of injury the patient was brought into the ER x-rays of the left tibia and fibula no evidence of any fracture patient was updated on his tetanus patient was taken to the OR last evening status post wound exploration irrigation sharp debridement of the devitalized skin and subcutaneous tissue multilayer closure application of the Prevena wound VAC, patient was started on IV vancomycin concerning for contaminated wound and risk of infection infectious he was consulted for further management of antibiotic therapy patient at time of evaluation is afebrile patient has been complaining of pain to the left leg more of a dull aching to sharp 4-5 out of 10 no radiation with improvement with the pain medication patient denies having any chest pain or shortness with or cough no nausea vomiting no abdominal pain no diarrhea Review of Systems Positive point has been mentioned in the HPI rest of the systems are negative Past Medical History Past Medical History: GERD/Reflux, Hypertension, Prostate Disorder Additional Past Medical History / Comment(s): kidney stones, prostate ca with radiation History of Any Multi-Drug Resistant Organisms: None Reported Year Discovered:: 03/02/18 MDRO Source:: ESBL URINE Past Surgical History: Orthopedic Surgery, Tonsillectomy Additional Past Surgical History / Comment(s): kidney stent, kidney stone removal, rt hip replac, Past Anesthesia/Blood Transfusion Reactions: No Reported Reaction Past Psychological History: No Psychological Hx Reported Smoking Status: Never smoker Past Alcohol Use History: Occasional Past Drug Use History: None Reported Medications and Allergies Home Medications Medication Instructions Recorded Confirmed Type Tamsulosin [Flomax] 0.4 mg PO DAILY 03/02/18 02/10/22 History Loratadine [Claritin] 10 mg PO DAILY PRN 02/10/22 02/10/22 History Pantoprazole [Protonix] 40 mg PO DAILY 02/10/22 02/10/22 History Cephalexin [Keflex] 500 mg PO Q6HR 10 Days #40 cap 02/12/22 Rx HYDROcodone/APAP 5-325MG [[place] 1 tab PO Q6HR PRN 7 Days #20 tab 02/12/22 Rx 5-325] Losartan [Cozaar] 50 mg PO HS #30 tab 02/12/22 Rx polyethylene glycoL 3350 [Miralax] 17 gm PO DAILY packet 02/12/22 Rx Allergies Allergy/AdvReac Type Severity Reaction Status Date / Time No Known Allergies Allergy Verified 02/13/22 08:58 Physical Exam Vitals: Vital Signs Temp Pulse Pulse Pulse Resp BP BP 02/11/22 07:42 98.4 F 68 108/69 02/11/22 07:41 98.4 F 68 108/69 02/11/22 01:50 98.5 F 77 16 116/66 02/10/22 20:13 68 121/72 02/10/22 20:12 70 119/72 02/10/22 20:11 71 118/75 02/10/22 20:10 69 115/67 02/10/22 20:09 74 123/63 02/10/22 20:00 75 18 123/74 02/10/22 19:45 77 16 124/73 02/10/22 19:29 97.0 F L 82 20 113/66 02/10/22 17:23 98.5 F 75 18 131/70 02/10/22 16:33 98.1 F 82 18 129/81 02/10/22 14:13 98.3 F 98 18 112/67 Pulse Ox 02/11/22 07:42 97 02/11/22 07:41 97 02/11/22 01:50 97 02/10/22 20:13 97 02/10/22 20:12 99 02/10/22 20:11 98 02/10/22 20:10 98 02/10/22 20:09 98 02/10/22 20:00 100 02/10/22 19:45 98 02/10/22 19:29 96 02/10/22 17:23 98 02/10/22 16:33 98 02/10/22 14:13 97 Intake and Output 02/10/22 02/11/22 02/11/22 22:59 06:59 14:59 Intake Total 700 1500 Output Total 452 300 600 Balance 248 1200 -600 Intake: IV 700 Intake, IV Titration 1500 Amount Penicillin G Potassium 5, 100 000,000 unit In Dextrose 5% in Water 100 ml @ 100 mls/hr IVPB ONCE ONE Rx#: [id number] Sodium Chloride 0.9% 1, 900 000 ml @ 75 mls/hr IV . [id number] [facility] Rx#:[id number] Vancomycin 2,000 mg In 500 Sodium Chloride 0.9% 500 ml 500 ml @ 167 mls/hr IVPB Q16H [facility] Rx#: [id number] Output: Urine 450 300 600 Estimated Blood Loss 2 Other: Voiding Method Urinal Weight 122.47 kg GENERAL DESCRIPTION: Elderly male lying in bed, no distress. No tachypnea or accessory muscle of respiration use. HEENT: Shows Pallor , no scleral icterus. Oral mucous membrane is dry. No pharyngeal erythema or thrush NECK: Trachea central, no thyromegaly. LUNGS: Unlabored breathing. Clear to auscultation anteriorly. No wheeze or crackle. HEART: S1, S2, regular rate and rhythm. No loud murmur ABDOMEN: Soft, no tenderness , guarding or rigidity, no organomegaly EXTREMITIES: Left leg is currently covered with the prevana wound VAC did have some swelling but no redness minimal tenderness SKIN: No rash, no masses palpable. NEUROLOGICAL: The patient is awake, alert, oriented x3, mood and affect normal. Results CBC & Chem 7: 02/10/22 14:37 02/12/22 05:50 Labs: Abnormal Lab Results - Last 24 Hours (Table) 02/10/22 02/10/22 Range/Units 14:37 14:37 Plt Count 117 L (150-450) k/uL Lymphocytes # 0.7 L (1.0-4.8) k/uL Chloride 108 H (98-107) mmol/L Glucose 121 H (74-99) mg/dL Assessment and Plan (1) Wound of left lower extremity Status: Acute Code(s): S81.802A - UNSPECIFIED OPEN WOUND, LEFT LOWER LEG, INITIAL ENCOUNTER SNOMED Code(s): 014514841 Plan: 1patient with a left lower extremity injury/contaminated wound s/p debridement and high risk of secondary infection and cellulitis likely from gram-positive skin jose in this patient who has not been on antibiotic recently and not risk factor for MRSA infection. 2we will discontinue the vancomycin 3start the patient on cefazolin 2 g every 8 hours. 4continue local wound care as ordered. We will follow on clinical condition and cultures to further adjust medication if needed Thank you for this consultation will follow this patient along with you Time with Patient: Greater than 30
[2022-02-12] MEDS: PANTOPRAZOLE 40 MG TABLET PO SCH (08:18)
[2022-02-12] MEDS: TAMSULOSIN 0.4 MG CAP.ER.24H PO SCH (08:18)
[2022-02-12] MEDS: HYDROcodone/APAP 5-325MG 1 EACH TAB PO PRN ×2 (08:18→15:13)
[2022-02-12] MEDS: polyethylene glycoL 3350 17 GM POWD.PACK PO SCH (08:19)
[2022-02-12] MEDS: SODIUM CHLORIDE 0.9% 1,000 ML IV SCH (08:21)
[2022-02-12 13:35] VITALS: BP 104/65; PULSE 78; TEMP 99.2
--- NOTE | 2022-02-12 16:13 | P.DS ---
Providers Date of admission: 02/10/22 15:31 Expected date of discharge: 02/12/22 Attending physician: Jaydon Higgins Consults: 02/10/22 18:57 Consult Physician Routine Consulting Provider: Gerardo Womack Consult Reason/Comments: antibiotic recommendations Do you want consulting provider notified?: Yes 02/10/22 18:58 Consult Physician Routine Consulting Provider: Dakota Lombardi Consult Reason/Comments: medical management Do you want consulting provider notified?: Yes [facility]: This is a 71- year-old male who is admitted to [facility] on 02/10/22 after sustained a laceration to the left lateral lower leg. 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 Patient was admitted under the care of Dr. Higgins with a consult placed to internal medicine and infectious disease. Patient was taken to the OR on 02/10/22 for irrigation and debridement of contaminated left lower extremity laceration and application of Prevena wound vac. The procedure was performed without complication or sequelae. The patient is doing fairly well postoperatively. Vital signs and labs are stable on postoperative day #2. Patient was examined bedside today. he has been evaluated both by infectious disease and internal medicine. Prevena wound VAC remains in place at the left lateral lower leg. The wound VAC has a good seal this time. Patient is ambulating with minimal pain in the left lower extremity. He overall feels well today and has no complaints. He denies chest pain, shortness of breath, nausea, vomiting, fevers, chills. On examination, patient is sitting up in bed in no apparent distress. He is alert and oriented 3. On inspection of his left lower extremity, there is a per with a wound VAC at the lateral lower leg. The per with a wound VAC is a good seal this time. Motor and sensory function of the left lower extremity is intact. The dorsalis pedis pulse easily palpable, the left lower extremity is warm and well perfused. Calf non-tender. Patient is discharged home in good condition, pending medical clearance today. Patient will follow-up with Dr. Higgins in the office on Tuesday02/15/22. Please see med rec for accurate list of discharge medication. Patient Condition at Discharge: Stable Plan - Discharge Summary Discharge Rx Participant: No New Discharge Prescriptions: New Cephalexin [Keflex] 500 mg PO Q6HR 10 Days #40 cap HYDROcodone/APAP 5-325MG [[place] 5-325] 1 tab PO Q6HR PRN 7 Days #20 tab PRN Reason: Pain No Action amLODIPine [Norvasc] 5 mg PO HS Tamsulosin [Flomax] 0.4 mg PO DAILY Losartan Potassium [Cozaar] 100 mg PO HS ALPRAZolam [Xanax] 0.5 mg PO BID PRN PRN Reason: Anxiety Pantoprazole [Protonix] 40 mg PO DAILY Loratadine [Claritin] 10 mg PO DAILY PRN PRN Reason: Allergy Symptoms Discharge Medication List Losartan Potassium [Cozaar] 100 mg PO HS 03/02/18 [History] Tamsulosin [Flomax] 0.4 mg PO DAILY 03/02/18 [History] amLODIPine [Norvasc] 5 mg PO HS 03/02/18 [History] ALPRAZolam [Xanax] 0.5 mg PO BID PRN 02/10/22 [History] Loratadine [Claritin] 10 mg PO DAILY PRN 02/10/22 [History] Pantoprazole [Protonix] 40 mg PO DAILY 02/10/22 [History] Cephalexin [Keflex] 500 mg PO Q6HR 10 Days #40 cap 02/12/22 [Rx] HYDROcodone/APAP 5-325MG [[place] 5-325] 1 tab PO Q6HR PRN 7 Days #20 tab 02/12/22 [Rx] Follow up Appointment(s)/Referral(s): Mana Cervantes DO [Primary Care Provider] - 02/16/22 2:00 pm (with Altagracia ) Jaydon Higgins MD [STAFF PHYSICIAN] - 02/15/22 8:20 am Gerardo Womack MD [STAFF PHYSICIAN] - 1 Week (office closed at this time patient to schedule appointment after discharge) Patient Instructions/Handouts: [facility] Management System Discharge Instructions, Laceration (DC) Activity/Diet/Wound Care/Special Instructions: Weight bear as tolerated on operative extremity. Keep Prevena wound vac in place until follow-up in the office. Take antibiotics as prescribed by Dr. Womack. Take pain medications as needed. Follow-up in the office with Dr. Higgins on Tuesday02/15/22. Call the office with any questions or concerns, Discharge Disposition: HOME SELF-CARE
--- NOTE | 2022-02-12 16:52 | P.PN ---
Subjective This is a 71-year-old male who was recently admitted under orthopedic services and underwent irrigation and debridement of a contaminated left lower extremity laceration with Dr. Higgins. Patient is postop day #1 and we were consulted for medical management as patient follows with Dr. Kumar in the outpatient setting with history of gastroesophageal reflux disease and hypertension along with prostate disorder and past medical history of prostate cancer with radiation. Patient is a reported never smoker denies any illicit drug use and occasionally drinks some beer socially. Patient currently takes losartan and amlodipine and has been compliant with medications. [place] assisting with reassembling a sweep auger that lost control and hit the lateral aspect of his left lower extremity. Patient apparently made a self tourniquet out of zip ties and towels and proceeded to come to the emergency department for further evaluation. 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 Patient did receive a tetanus shot in the emergency department. X-ray of the left lower extremity was done with no fracture noted and patient was given broad-spectrum antibiotics in the form of ceftriaxone and vancomycin and orthopedics admitted the patient and patient underwent OR. The laceration on ED admission measured approximately 15 cm x 5 cm and appeared contaminated with attempted washout done in the ER. There was reported no fractures noted although soft tissue with noted gas extending to the lateral malleolus. Infectious disease was also consulted. On evaluation this morning patient artery had wound VAC applied and reports is feeling well. 02/12/2022 Patient is status post I&D for his left leg infected laceration. Currently lying in bed comfortable, denies any symptoms. Wound looks clean with no surrounding cellulitis, wound VAC in place. Patient is afebrile and vitals are stable. Blood pressure is controlled on losartan 50 mg daily. At home he was taken 100 mg. Also Norvasc was stopped on hospitalization. Currently on normal saline 75 mL/h, and cefazolin per ID team. Lungs looks stable. X-ray of the tibia and fibula showing no acute fracture Patient states is able to walk, he is eating well, he has regular bowel movements. He denies any specific signs or symptoms. Patient was instructed to close follow up with PCP Dr. Kumar within one week and he agrees. Objective - Vital Signs Vital signs: Vital Signs Temp 97.3 F L 02/12/22 07:40 Pulse 57 L 02/12/22 07:40 Resp 16 02/12/22 08:45 BP 106/71 02/12/22 07:40 Pulse Ox 99 02/12/22 07:40 FiO2 Intake & Output 02/11/22 02/12/22 02/12/22 18:59 06:59 18:59 Output Total 600 Balance -600 Output: Urine 600 Other: Voiding Method Urinal Urinal # Voids 2 2 - Exam GENERAL: The patient is alert and oriented x3, not in any acute distress. Well developed, well nourished. HEENT: Pupils are round and equally reacting to light. EOMI. No scleral icterus. No conjunctival pallor. Normocephalic, atraumatic. No pharyngeal erythema. No thyromegaly. CARDIOVASCULAR: S1 and S2 present. No murmurs, rubs, or gallops. PULMONARY: Chest is clear to auscultation, no wheezing or crackles. ABDOMEN: Soft, nontender, nondistended, normoactive bowel sounds. No palpable organomegaly. MUSCULOSKELETAL: No joint swelling or deformity. -EXTREMITIES: No cyanosis, clubbing, or pedal edema. Left leg wound on the medial lateral shaft, with dressing and wound VAC in place. Rest of exam is deferred to surgery team NEUROLOGICAL: Gross neurological examination did not reveal any focal deficits. SKIN: No rashes. no petechiae. - Labs CBC & Chem 7: 02/10/22 14:37 02/12/22 05:50 Assessment and Plan Assessment: Left lower extremity laceration measuring approximately 15 cm x 5 cm status post irrigation and debridement of contaminated left lower extremity postop day #2. Currently on antibiotic per ID team Hypertension, blood pressures on the softer side and takes 100 mg of losartan which will decrease to 50 for now and monitor for any signs of postoperative hypotension History of Gastroesophageal reflux disease Obesity with BMI of 36.6 Plan: This is a pleasant 71 years old male who presents with right leg infected laceration status post I&D. Continue with antibiotics as per infectious disease team Continue with gentle hydration Continue holding Norvasc and lower dose of losartan 100 mg down to 50 mg daily. Continue with the current blood pressure medication upon discharge with close outpatient follow-up. Patient already has an appointment with PCP on 02/16 per staff. Patient currently medically stable. Currently on wound VAC Pain management and DVT prophylaxis as per surgery primary team Continue same treatment. Continue with symptomatic treatment. Resume home medication. Monitor lytes and vitals. DVT and GI prophylaxis. Further recommendations as per clinical course of the patient Thank you for consulting us
--- NOTE | 2022-02-19 15:49 | P.PN ---
Subjective Progress Note Date: 02/12/22 Principal diagnosis: Left lower extremity contaminated injury Patient is a 71 year old male who did have a injury to his left leg with the big laceration in this patient who is status post surgical repair and debridement and concern for cellulitis. on today's evaluation that is 02/12/2022, the patient denies having any fever or any chills, the patient is breathing comfortably no chest pain or shortness of breath or cough no abdominal pain pain to the left leg is currently controlled Objective - Vital Signs Vital signs: Vital Signs Temp 97.3 F L 02/12/22 07:40 Pulse 57 L 02/12/22 07:40 Resp 16 02/12/22 08:45 BP 106/71 02/12/22 07:40 Pulse Ox 99 02/12/22 07:40 FiO2 Intake & Output 02/11/22 02/12/22 02/12/22 18:59 06:59 18:59 Output Total 600 Balance -600 Output: Urine 600 Other: Voiding Method Urinal Urinal # Voids 2 2 - Exam GENERAL DESCRIPTION: An elderly male lying in bed in no distress RESPIRATORY SYSTEM: Unlabored breathing , decreased breath sounds at bases HEART: S1 S2 regular rate and rhythm , ABDOMEN: Soft , no tenderness EXTREMITIES: Left leg wound is currently covered with a wound VAC no surrounding redness - Labs CBC & Chem 7: 02/10/22 14:37 02/12/22 05:50 Assessment and Plan (1) Wound of left lower extremity Status: Acute Code(s): S81.802A - UNSPECIFIED OPEN WOUND, LEFT LOWER LEG, INITIAL ENCOUNTER SNOMED Code(s): 393609972 Plan: 1patient with a left lower extremity injury/contaminated wound s/p debridement and high risk of secondary infection and cellulitis likely from gram-positive skin jose in this patient who has not been on antibiotic recently and not risk factor for MRSA infection. 2patient has clinically improved with cefazolin 2 g every 8 hours, will finish therapy with oral Keflex prescription has been sent to the pharmacy. 3continue local care with prevana wound VAC which will be removed by the orthopedic with a week and a close outpatient follow-up Time with Patient: Less than 30
== END 2022-02-12 16:58 | disposition home or self-care (01) ==
LOC: EC 13:55 → 4SSUR 15:31
PROVIDERS: ADMIT Orthopaedic Surgery; ATTEND Orthopaedic Surgery
DX: S81.812A Laceration without foreign body, left lower leg, initial encounter (principal); K21.9 Gastro-esophageal reflux disease without esophagitis; I10 Essential (primary) hypertension; N42.9 Disorder of prostate, unspecified; E66.9 Obesity, unspecified; Z68.36 Body mass index [BMI] 36.0-36.9, adult; Z23 Encounter for immunization; Z79.899 Other long term (current) drug therapy; W45.8XXA Other foreign body or object entering through skin, initial encounter; Y93.H2 Activity, gardening and landscaping; Y92.79 Other farm location as the place of occurrence of the external cause; Z87.442 Personal history of urinary calculi; Z85.46 Personal history of malignant neoplasm of prostate; Z92.3 Personal history of irradiation; Z16.24 Resistance to multiple antibiotics
CPT/HCPCS: 90471; 96365; 96375; 99285; 36415; 93005; 86900; 86901; 80053; 82565 ×2; 85025; 85610; 85730; 86850; 73590; 90715; 13121; 13122; G0378 ×3; J2250; J3370 ×2; J1100; J0690 ×2; J2405; J0696; J3010; J0330; J2704; J1170; J2540; J2001